=== PATIENT | female | born 1945 | race Caucasian/White ===

== ENCOUNTER → 2017-03-30 | Day surgery (SDC) | payer MEDICARE, BC ==
[~2017-03-30] MED LIST: Propofol 200 MG/20 ML SDV IV ONE; Sodium Chloride 0.9% 500 ML IV SCH
[2017-03-30 08:56] VITALS: BP 125/64
--- NOTE | 2017-04-02 07:12 | OR ---
DATE OF OPERATION: 03/30/2017 PREOPERATIVE DIAGNOSIS: 1. IRON-DEFICIENCY ANEMIA. 2. WEIGHT LOSS. POSTOPERATIVE DIAGNOSIS: 1. IRON-DEFICIENCY ANEMIA. 2. WEIGHT LOSS. SURGEON: Robe Oleary MD PROCEDURE: 1. EGD WITH HESHAM. 2. FULL-LENGTH COLONOSCOPY WITH POLYP REMOVAL X1. 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 COMPLICATIONS: None. SPECIMEN: 1. Antral HESHAM. 2. Rectal polyp likely hyperplastic. FINDINGS: 1. Full-length EGD. 2. Small hiatal hernia with nonobstructing Schatzki ring. 3. Full-length colonoscopy. 4. Hyperplastic polyp, rectal vault. RECOMMENDATIONS: Ongoing medical followup. INDICATIONS: The patient has been having some ongoing issues with weight loss and failure at attempts to gain weight. She has a history of iron-deficiency anemia. She is anticoagulated. She has refused endoscopies for almost a year and at this point, she does agree to pursue this further. DESCRIPTION OF PROCEDURE: The patient was prepped and draped, placed in a left lateral decubitus position. A lubricated Olympus gastroscope was inserted over a bit and advanced to cricopharyngeus area and easily intubated in the esophagus. Esophageal lining was benign in its entire course. The Z-line was crisp and sharp around 36 cm. There is a small hiatal hernia present, associated with a nonobstructing Schatzki ring. The scope was advanced into the stomach through the pylorus into the second portion of the duodenum. This and the duodenal bulb were benign. The scope was brought back into the stomach and retroflexed. The upper fundus and cardia were unremarkable. Throughout the entire length of the stomach, I could find no peptic ulcer disease, polyps, mass, ulceration, bleeding sites etc. A CLOtest was obtained. Air was suctioned and scope was removed without complication. A lubricated Olympus colonoscope was then inserted and advanced to the cecum. This was slightly difficult as the patient is very thin and not a lot of give in her colon, but we were able to get safely to the cecal pouch and visualize the ileocecal valve. The bowel prep was excellent. Upon withdrawal throughout the entire length of the colon, I could find no worrisome of polyps, mass, ulceration, bleeding sites. No vascular abnormalities or signs of colitis. No significant diverticula in the rectal vault. On retroflexion, the patient had a small hyperplastic appearing polyp, flat in the mid rectal vault region. We did remove it with the forceps with 2 cold biopsies. Air was suctioned. Scope was removed without complication. RAFAELA/NICHOLAS /[id number]
== END ==
LOC: CC.SDS 06:50
PROVIDERS: ATTEND Family Medicine
DX: K62.1 Rectal polyp (principal); K44.9 Diaphragmatic hernia without obstruction or gangrene; K22.2 Esophageal obstruction; J44.9 Chronic obstructive pulmonary disease, unspecified; I48.91 Unspecified atrial fibrillation; Z88.0 Allergy status to penicillin; Z88.1 Allergy status to other antibiotic agents; Z79.01 Long term (current) use of anticoagulants; Z79.82 Long term (current) use of aspirin; Z79.899 Other long term (current) drug therapy; F17.210 Nicotine dependence, cigarettes, uncomplicated
CPT/HCPCS: 00810; 36415; 43235; 45380; 85610; 87081; J2704; J7040; 88305

== ENCOUNTER 2017-09-04 14:38 | Observation (INO) | payer MEDICARE, BC ==
[2017-09-04] MEDS ORDERED: Sodium Chloride 0.9% 10 ML Syringe FLUSH PRN (14:55)
[2017-09-04] MEDS ORDERED: Albuterol 0.083% 2.5 MG/3 ML Neb Soln NEB PRN (14:58)
[2017-09-04] MEDS ORDERED: Albuterol 8 GM Inhaler INH PRN (14:58)
[2017-09-04] MEDS ORDERED: Carbidopa/Levodopa 25-100 MG Tab PO PRN (14:58)
[2017-09-04] MEDS ORDERED: cefTRIAXone 1 GM Vial IVPUSH SCH (15:00)
[2017-09-04 15:43] LABS: CHLORIDE,CL 99 mEq/L (98-106); SODIUM,NA 135 mEq/L (136-145)
[2017-09-04] MEDS ORDERED: Warfarin 2.5 MG Tab PO SCH ×2 (16:00)
[2017-09-04] MEDS ORDERED: Ketorolac 30 MG/ML SDV IVPUSH ONE (16:34)
[2017-09-04] MEDS ORDERED: Sodium Chloride 0.9% 250 ML IV SCH (16:45)
[2017-09-04] MEDS ORDERED: Sodium Chloride 0.9% 1,000 ML IV SCH (17:00)
[2017-09-04] MEDS ORDERED: Diltiazem 120 MG Cap.CD PO ONE (17:03)
[2017-09-04] MEDS ORDERED: Non-Formulary Medication 1 Each (Arformoterol [Brovana] 15 MCG) NEB SCH (20:00)
[2017-09-04] MEDS ORDERED: Non-Formulary Medication 1 Each (Fluticasone Propionate [Flovent] 1 SPRAY) NASBOTH SCH (20:00)
[2017-09-04] MEDS ORDERED: buPROPion 150 MG Tab.ER PO SCH (20:00)
[2017-09-04] MEDS ORDERED: metroNIDAZOLE 500 MG Tab PO SCH (20:00)
[2017-09-04] MEDS: Acetaminophen/HYDROcodone 325-5 MG Tab PO PRN (20:17)
[2017-09-04] MEDS: Cyclobenzaprine 10 MG Tab PO SCH (20:18)
[2017-09-04] MEDS: Budesonide 0.5 MG/2 ML Neb Susp NEB SCH (20:20)
[2017-09-04] MEDS: Nicotine 21 MG/24 Hr Patch TRDERM SCH (22:22)
[2017-09-05] MEDS: Acetaminophen/HYDROcodone 325-5 MG Tab PO PRN (04:02)
[2017-09-05] MEDS ORDERED: Pantoprazole 40 MG Tab.CR PO SCH (07:00)
[2017-09-05] MEDS: Nicotine 21 MG/24 Hr Patch TRDERM SCH (07:42)
[2017-09-05] MEDS: Cyclobenzaprine 10 MG Tab PO SCH ×2 (07:47→13:50)
[2017-09-05] MEDS: Budesonide 0.5 MG/2 ML Neb Susp NEB SCH (07:51)
[2017-09-05] MEDS ORDERED: DILTIAZEM HCL 240 MG PO SCH (08:00)
[2017-09-05] MEDS ORDERED: Ferrous Sulfate 324 MG Tab.EC PO SCH (08:00)
[2017-09-05] MEDS ORDERED: Diltiazem 180 MG Cap.CD PO SCH (08:00)
[2017-09-05] MEDS ORDERED: Aspirin 81 MG Tab.EC PO SCH (08:00)
[2017-09-05] MEDS ORDERED: methylPREDNISolone Sodium Succinate 125 MG/2 ML SDV IVPUSH SCH (08:00)
--- NOTE | 2017-09-05 11:13 | PCM.DCSUM1 ---
Discharge Summary - Hospital Course HPI Initial Comments: Khushboo is a 72 year old female who was admitted to observation status by Dr. Oleary on 09/04/2017 for pleurisy and atrial fibrillation with RVR. While in clinic , pulse rate was as high as 140. EKG revealed atrial fibrillation with RVR of 112. Troponin was negative. She had previously been taking 240 mg Diltiazem. She was given an additional 120 mg dose upon arrival to hospital. Throughout observation stay, pulse was better controlled and remained < 100. Telemetry revealed atrial fibrillation. She is on Coumadin. INR was supratherapeutic in hospital at 3.49. She will hold her Coumadin the next two days and then resume normal dosing. Cardizem dose will be increased to 360 mg daily. She has been struggling with neck pain and pleurisy. She was started on IV rocephin and steroids for questionable bronchiolitis as cause of pleurisy. CXR was negative for any infiltrates or other acute processes. C-spine images were obtained and reveal degenerative disc disease. CRP improved from 12.6 to 9.2. Patient will be referred to PT. She will be discharged home on 20 mg prednisone daily x 5 days as well as Flexeril TID PRN for pain. She is advised to stop taking prednisone if she experiences any upset stomach. We do not feel any further antibiotic therapy is warranted. She has been struggling with diarrhea recently. Cdiff was negative. WBC count remains normal. She is scheduled to follow up with Dr. Oleary in clinic next . She will also have her INR rechecked prior to clinic visit. - Discharge Data Discharge Date: 09/05/17 Discharge Disposition: Home, Self-Care 01 Condition: Good - Discharge Diagnosis/Problem(s) (1) Pleurisy SNOMED Code(s): 181215661 ICD Code: R09.1 - PLEURISY Status: Acute Current Visit: Yes (2) Atrial fibrillation with RVR SNOMED Code(s): 305342088671773 ICD Code: I48.91 - UNSPECIFIED ATRIAL FIBRILLATION Status: Acute Priority : High Current Visit: No (3) Degenerative cervical disc SNOMED Code(s): 36410635 ICD Code: M50.30 - OTHER CERVICAL DISC DEGENERATION, UNSP CERVICAL REGION Status: Acute Current Visit: Yes - Patient Summary/Data Consults: Consultations 09/04/17 14:55 PT Evaluation and Treatment [CONS] Routine - Patient Instructions Diet: Usual Diet as Tolerated Activity: As Tolerated, No Lifting Over 20 Pounds Notify Provider of: Increased Pain, Swelling and Redness - Discharge Plan Prescriptions/Med Rec: Cyclobenzaprine [Flexeril] 10 mg PO TID PRN #20 tablet PRN Reason: Pain predniSONE [Prednisone] 20 mg PO DAILY 5 Days #5 tablet Home Medications: Home Meds Albuterol Sulfate 2.5 mg NEB Q6H PRN 10/14/15 [History] Albuterol [Ventolin HFA] 1 - 2 puff INH Q4H PRN 10/14/15 [History] Arformoterol [Brovana] 15 mcg NEB BID 10/14/15 [History] Budesonide [Pulmicort] 0.25 mg NEB BID 10/14/15 [History] Carbidopa/Levodopa [Carbidopa-Levodopa 25-100 Tab] 1 - 2 tab PO BEDTIME PRN [History] Aspirin [Adult Low Dose Aspirin EC] 81 mg PO DAILY 04/10/16 [History] Vit A/C/E AC/Znox/Cupric Oxide [Eye Vitamin-Minerals Tablet] 2 tab PO BID [History] Pantoprazole [ProTONIX] 40 mg PO ACBREAKFAST #30 tab.cr 04/12/16 [Rx] Nebulizer Accessories [Gena Lc Plus Nebulizer] 1 kit NEB ASDIRECTED 09/04/17 [ History] Warfarin Sodium 5 mg PO MOTH 09/04/17 [History] Warfarin [Coumadin] 2.5 mg PO SUTUWEFRSA 09/04/17 [History] Cyclobenzaprine [Flexeril] 10 mg PO TID PRN #20 tablet 09/05/17 [Rx] Diltiazem HCl [Diltiazem 24Hr ER] 360 mg PO DAILY 09/05/17 [History] predniSONE [Prednisone] 20 mg PO DAILY 5 Days #5 tablet 09/05/17 [Rx] Patient Handouts: Musculoskeletal Pain, Atrial Fibrillation, [id number] Referrals: Robe Oleary MD [Primary Care Provider] - - General Info Date of Service: 09/05/17 Admission Dx/Problem (Free Text: Atrial Fibrillation with RVR Neck pain Functional Status: Reports: Tolerating Diet, Ambulating, Urinating. Denies: Pain Controlled, New Symptoms - Review of Systems General: Reports: No Symptoms. Denies: Fever, Weakness, Fatigue, Chills HEENT: Reports: No Symptoms Pulmonary: Reports: Pleuritic Chest Pain, Cough, Sputum. Denies: Shortness of Breath, Hemoptysis, Wheezing Cardiovascular: Reports: Dyspnea on Exertion. Denies: Chest Pain, Palpitations , Edema, Lightheadedness Gastrointestinal: Reports: No Symptoms Genitourinary: Reports: No Symptoms Musculoskeletal: Reports: Neck Pain, Shoulder Pain Skin: Reports: No Symptoms Neurological: Reports: No Symptoms Psychiatric: Reports: No Symptoms - Patient Data Vitals - Most Recent: Last Vital Signs Temp 97.4 F 09/05/17 08:00 Pulse 80 09/05/17 08:00 Resp 16 09/05/17 08:00 BP 109/46 L 09/05/17 08:00 Pulse Ox 99 09/05/17 08:00 Weight - Most Recent: 78 lb Lab Results - Last 24 hrs: Laboratory Results - last 24 hr 09/04/17 09/04/17 09/04/17 Range/Units 15:20 15:20 15:20 WBC 9.5 (5.0-10.0) 10^3/uL RBC 3.58 L (4.00-5.50) 10^6/uL Hgb 11.3 L (12.0-16.0) g/dL Hct 34.3 L (37.0-47.0) % MCV 95.8 H (82.0-94.0) fL MCH 31.6 (27.0-32.0) pg MCHC 32.9 L (33.0-38.0) g/dL RDW Coeff of Naomi 12.9 (11.0-15.0) % Plt Count 268 (150-400) 10^3/uL Neut % (Auto) 82.7 (35-85) % Lymph % (Auto) 8.6 L (10-55) % Andrews % (Auto) 7.0 (0-16) % Eos % (Auto) 1.5 (0-5) % Baso % (Auto) 0.2 (0-3) % Neut # (Auto) 7.84 H (1.80-7.00) 10^3/uL Lymph # (Auto) 0.81 L (1.00-4.80) 10^3/uL Andrews # (Auto) 0.66 (0.00-0.80) 10^3/uL Eos # (Auto) 0.14 (0.00-0.45) 10^3/uL Baso # (Auto) 0.02 10^3/uL PT 33.0 H (9.7-12.3) SEC INR 3.48 H (0.92-1.18) Sodium 135 L (136-145) mEq/L Potassium 3.6 (3.5-5.0) mEq/L Chloride 99 (98-106) mEq/L Carbon Dioxide 27 (21-32) mmol/L BUN 16 (7-18) mg/dL Creatinine 0.8 (0.6-1.0) mg/dL Est Cr Clr Drug Dosing TNP Estimated GFR (MDRD) > 60 (>=60) mL/min Glucose 165 H D (75-99) mg/dL Calcium 9.1 (8.4-10.1) mg/dL Total Bilirubin 0.2 (0.0-1.0) mg/dL AST 18 (15-37) U/L ALT 24 (12-78) U/L Alkaline Phosphatase 117 H (46-116) U/L Creatine Kinase 35 (21-215) U/L Troponin I < 0.017 (0.00-0.06) ng/mL C-Reactive Protein 12.6 H (0.2-0.8) mg/dL Total Protein 7.3 (6.4-8.2) g/dL Albumin 2.8 L (3.4-5.0) g/dL Urine Color (YELLOW) Urine Appearance (CLEAR) Urine pH (4.5-8.0) Ur Specific Monument (1.003-1.020) Urine Protein (NEGATIVE) mg/dL Urine Glucose (UA) (NEGATIVE) mg/dL Urine Ketones (NEGATIVE) mg/dL Urine Occult Blood (NEGATIVE) Urine Nitrite (NEGATIVE) Urine Bilirubin (NEGATIVE) Urine Urobilinogen (0.2-1.0) EU/dL Ur Leukocyte Esterase (NEGATIVE) Urine RBC (0-5) /HPF Urine WBC (0-5) /HPF Ur Squamous Epith Cells (NOT SEEN) /HPF 09/04/17 09/05/17 Range/Units 19:30 07:00 WBC (5.0-10.0) 10^3/uL RBC (4.00-5.50) 10^6/uL Hgb (12.0-16.0) g/dL Hct (37.0-47.0) % MCV (82.0-94.0) fL MCH (27.0-32.0) pg MCHC (33.0-38.0) g/dL RDW Coeff of Naomi (11.0-15.0) % Plt Count (150-400) 10^3/uL Neut % (Auto) (35-85) % Lymph % (Auto) (10-55) % Andrews % (Auto) (0-16) % Eos % (Auto) (0-5) % Baso % (Auto) (0-3) % Neut # (Auto) (1.80-7.00) 10^3/uL Lymph # (Auto) (1.00-4.80) 10^3/uL Andrews # (Auto) (0.00-0.80) 10^3/uL Eos # (Auto) (0.00-0.45) 10^3/uL Baso # (Auto) 10^3/uL PT 33.1 H (9.7-12.3) SEC INR 3.49 H (0.92-1.18) Sodium (136-145) mEq/L Potassium (3.5-5.0) mEq/L Chloride (98-106) mEq/L Carbon Dioxide (21-32) mmol/L BUN (7-18) mg/dL Creatinine (0.6-1.0) mg/dL Est Cr Clr Drug Dosing Estimated GFR (MDRD) (>=60) mL/min Glucose (75-99) mg/dL Calcium (8.4-10.1) mg/dL Total Bilirubin (0.0-1.0) mg/dL AST (15-37) U/L ALT (12-78) U/L Alkaline Phosphatase (46-116) U/L Creatine Kinase (21-215) U/L Troponin I (0.00-0.06) ng/mL C-Reactive Protein (0.2-0.8) mg/dL Total Protein (6.4-8.2) g/dL Albumin (3.4-5.0) g/dL Urine Color Yellow (YELLOW) Urine Appearance Clear (CLEAR) Urine pH 6.5 (4.5-8.0) Ur Specific Monument 1.020 (1.003-1.020) Urine Protein Negative (NEGATIVE) mg/dL Urine Glucose (UA) Negative (NEGATIVE) mg/dL Urine Ketones Negative (NEGATIVE) mg/dL Urine Occult Blood Negative (NEGATIVE) Urine Nitrite Negative (NEGATIVE) Urine Bilirubin Negative (NEGATIVE) Urine Urobilinogen 0.2 (0.2-1.0) EU/dL Ur Leukocyte Esterase Negative (NEGATIVE) Urine RBC Not seen (0-5) /HPF Urine WBC 0-5 (0-5) /HPF Ur Squamous Epith Cells Occasional H (NOT SEEN) /HPF DARYL Results - Last 24 hrs: Microbiology 09/04/17 06:30 C. difficile DNA Amplification - Final Stool / Feces NEGATIVE CDIFF BY DNA Med Orders - Current: Current Medications Hydrocodone Bitart/Acetaminophen ([place] 325-5 Mg) 1 tab PO Q6H PRN PRN Reason: Pain Last Admin: 09/05/17 04:02 Dose: 1 tab Albuterol (Ventolin Hfa) 0 gm INH Q2H PRN PRN Reason: Shortness of Breath Albuterol (Proventil Neb Soln) 2.5 mg NEB Q6H PRN PRN Reason: Shortness of Breath Aspirin (Halfprin) 81 mg PO DAILY [facility] Last Admin: 09/05/17 07:48 Dose: 81 mg Budesonide (Pulmicort) 0.25 mg NEB BID [facility] Last Admin: 09/05/17 07:51 Dose: 0.25 mg Carbidopa/Levodopa (Sinemet 25-100 Mg) 1 - 2 tab PO BEDTIME PRN PRN Reason: Spasms Ceftriaxone Sodium (Rocephin) 1 gm IVPUSH DAILY@1600 [facility] Last Admin: 09/04/17 17:23 Dose: 1 gm Cyclobenzaprine HCl (Flexeril) 10 mg PO TID [facility] Last Admin: 09/05/17 07:47 Dose: 10 mg Diltiazem HCl (Cardizem Cd) 360 mg PO DAILY [facility] Last Admin: 09/05/17 07:48 Dose: 360 mg Sodium Chloride (Normal Saline) 1,000 mls @ 50 mls/hr IV ASDIRECTED [facility] Last Admin: 09/04/17 17:36 Dose: 50 mls/hr Methylprednisolone Sodium Succinate (Solu-Medrol) 125 mg IVPUSH Q24H [facility] Last Admin: 09/05/17 07:47 Dose: 125 mg Nicotine (Habitrol) 21 mg TRDERM DAILY [facility] Last Admin: 09/05/17 07:42 Dose: 21 mg Non-Formulary Medication (Arformoterol [Brovana]) 15 mcg NEB BID [facility] Pantoprazole Sodium (Protonix) 40 mg PO ACBREAKFAST [facility] Last Admin: 09/05/17 06:43 Dose: 40 mg Sodium Chloride (Saline Flush) 10 ml FLUSH ASDIRECTED PRN PRN Reason: Keep Vein Open Warfarin Sodium (Coumadin) 2.5 mg PO SUTUWEFRSA [facility] Last Admin: 09/04/17 17:05 Dose: Not Given Warfarin Sodium (Coumadin) 5 mg PO MOTH [facility] Discontinued Medications Bupropion HCl (Wellbutrin Xl) 150 mg PO BID [facility] Diltiazem HCl (Cardizem Cd) 120 mg PO ONETIME ONE Stop: 09/04/17 17:04 Last Admin: 09/04/17 17:22 Dose: 120 mg Ferrous Sulfate (Ferrous Sulfate) 324 mg PO DAILY [facility] Sodium Chloride (Normal Saline) 250 mls @ 50 mls/hr IV ASDIRECTED [facility] Ketorolac Tromethamine (Toradol) 30 mg IVPUSH ONETIME ONE Stop: 09/04/17 16:35 Last Admin: 09/04/17 17:22 Dose: 30 mg Metronidazole (Flagyl) 500 mg PO TID [facility] Non-Formulary Medication (Diltiazem Hcl) 240 mg PO DAILY [facility] Non-Formulary Medication (Fluticasone Propionate [Flovent]) 1 spray NASBOTH BID [facility] Warfarin Sodium (Coumadin) 2.5 mg PO MOTUWETHFR [facility] Warfarin Sodium (Coumadin) 5 mg PO SUSA [facility] - Exam Quality Assessment: Reports: DVT Prophylaxis. Denies: Supplemental Oxygen General: Reports: Alert, Oriented, No Acute Distress Neck: Reports: Supple, Trachea Midline Lungs: Reports: Clear to Auscultation, Normal Respiratory Effort, Decreased Breath Sounds Cardiovascular: Reports: Regular Rate, Irregular Rhythm, Murmurs Back Exam: Reports: Normal Inspection, Full Range of Motion Extremities: Normal Inspection, Normal Range of Motion, Non-Tender, No Pedal Edema, Normal Capillary Refill Skin: Reports: Warm, Dry, Intact Neurological: Reports: No New Focal Deficit Psy/Mental Status: Reports: Alert, Normal Affect, Normal Mood
[2017-09-05 11:25] LABS: CHLORIDE,CL 99 mEq/L (98-106); SODIUM,NA 132 mEq/L (136-145)
[2017-09-05 12:17] VITALS: BP 120/56
[2017-09-06] MEDS ORDERED: Warfarin 5 MG Tab PO SCH (16:00)
[2017-09-08] MEDS ORDERED: Warfarin 5 MG Tab PO SCH (16:00)
== END 2017-09-05 13:47 | disposition home or self-care (01) ==
LOC: UNDOADMOB 14:38 → CC.MS 14:38
PROVIDERS: ADMIT Family Medicine; ATTEND Family Medicine
DX: R09.1 Pleurisy (principal); I48.91 Unspecified atrial fibrillation; M50.30 Other cervical disc degeneration, unspecified cervical region; J30.9 Allergic rhinitis, unspecified; M19.90 Unspecified osteoarthritis, unspecified site; J44.9 Chronic obstructive pulmonary disease, unspecified; E78.5 Hyperlipidemia, unspecified; D50.9 Iron deficiency anemia, unspecified; G25.81 Restless legs syndrome; J30.2 Other seasonal allergic rhinitis; F17.210 Nicotine dependence, cigarettes, uncomplicated; Z79.82 Long term (current) use of aspirin; Z79.899 Other long term (current) drug therapy; Z88.8 Allergy status to other drugs, medicaments and biological substances; Z88.0 Allergy status to penicillin
CPT/HCPCS: 36415; 71046; 72040; 80053; 81001; 82550; 84484; 85025; 85610; 86140; 87493; 93005; 96374; 96375; A9270-GY; G0378; J0696; J1885; J2930; J7030

== ENCOUNTER 2018-03-26 21:18 | Emergency (ER) | payer MEDICARE, BC, OTHER ==
[2018-03-26 22:02] VITALS: BP 124/63
[2018-03-26 22:59] LABS: CHLORIDE,CL 101 mEq/L (98-106); SODIUM,NA 138 mEq/L (136-145)
--- NOTE | 2018-03-26 23:44 | EDM.PDOC ---
ED HPI GENERAL MEDICAL PROBLEM - General Chief Complaint: Abdominal Pain Stated Complaint: abdominal Time Seen by Provider: 03/26/18 22:05 Source of Information: Reports: Patient History Limitations: Reports: No Limitations - History of Present Illness INITIAL COMMENTS - FREE TEXT/NARRATIVE: Khushboo is a 72 yo female who presents to the ED with complaints of a right inguinal mass. She has been doctoring for this over the last 10 months. She admits it will swell up in the right groin area and stay swollen up and cause her to have extreme discomfort. She admits she has had CT scans done in the past and no known cause is noted. She recently seen Dr. Aguilar for this and is scheduled to undergo exploratory laparotomy on March 28. She states Dr. Aguilar was unable to feel the mass. She admits she has pushed off surgery a few times as her had recently underwent a lower extremity amputation and she needed to care for him. She states it will come and go randomly and at times swell up to the size of an egg. She states she can usually apply heat to the area and that will usually take the discomfort away. Tonight she was unable to get any relief. She admits it seems to be gradually getting worse lately in intensity. She admits tonight she took one of her anxiety pills and that seemed to make it feel a lot better. At onset it was a 10 out of 10 on pain scale and now currently a 4 out of 10. Right Lower Abdomen Pain Score (Numeric/FACES): 4 - Related Data Allergies Allergy/AdvReac Type Severity Reaction Status Date / Time ciprofloxacin [From Cipro] Allergy Hives Verified 03/26/18 21:19 ciprofloxacin HCl Allergy Hives Verified 03/26/18 21:19 [From Cipro] Penicillins Allergy Rash Verified 03/26/18 21:19 Home Meds: Home Meds Albuterol Sulfate 2.5 mg NEB Q6H PRN 10/14/15 [History] Albuterol [Ventolin HFA] 1 - 2 puff INH Q4H PRN 10/14/15 [History] Arformoterol [Brovana] 15 mcg NEB BID 10/14/15 [History] Budesonide [Pulmicort] 0.25 mg NEB BID 10/14/15 [History] Carbidopa/Levodopa [Carbidopa-Levodopa 25-100 Tab] 1 - 2 tab PO BEDTIME PRN [History] Vit A/C/E AC/Znox/Cupric Oxide [Eye Vitamin-Minerals Tablet] 2 tab PO BID [History] Pantoprazole [ProTONIX] 40 mg PO ACBREAKFAST #30 tab.cr 04/12/16 [Rx] Nebulizer Accessories [Gena Lc Plus Nebulizer] 1 kit NEB ASDIRECTED 09/04/17 [ History] Warfarin Sodium 5 mg PO MOTH 09/04/17 [History] Warfarin [Coumadin] 2.5 mg PO SUTUWEFRSA 09/04/17 [History] Diltiazem HCl [Diltiazem 24Hr ER] 360 mg PO DAILY 09/05/17 [History] Past Medical History HEENT History: Reports: Cataract, Impaired Vision Cardiovascular History: Reports: Afib Respiratory History: Reports: COPD, Pneumonia, Recurrent Other Respiratory History: emphysema HOME HEALTH CARE COORDINATOR History: Reports: , Other (See Below) Other HOME HEALTH CARE COORDINATOR History: has enlarged area right groin; unsure if it is a hernia or enlarged lymph node or something else. Patient is scheduled for exploratory laparoscopy on to find out what is causing her pain in that area Musculoskeletal History: Reports: Osteoarthritis - Past Surgical History HEENT Surgical History: Reports: Adenoidectomy, Cataract Surgery, Tonsillectomy Respiratory Surgical History: Reports: None Social & Family History - Family History Family Medical History: Noncontributory Cardiac: Reports: [place] - Tobacco Use Smoking Status *Q: Current Every Day Smoker Years of Tobacco use: 69 Packs/Tins Daily: 0.5 - Caffeine Use Caffeine Use: Reports: Coffee, Soda ED ROS GENERAL - Review of Systems Review Of Systems: See Below Constitutional: Reports: No Symptoms HEENT: Reports: No Symptoms Respiratory: Reports: Shortness of Breath (COPD), Cough Cardiovascular: Reports: No Symptoms GI/Abdominal: Reports: Abdominal Pain (right inguinal area). Denies: Bloody Stool, Diarrhea (normal bowel movements, on stool softener), Nausea, Vomiting : Reports: No Symptoms Musculoskeletal: Reports: No Symptoms Skin: Reports: No Symptoms Neurological: Reports: No Symptoms ED EXAM, GI/ABD - Physical Exam Exam: See Below Exam Limited By: No Limitations General Appearance: Alert, No Apparent Distress Head: Atraumatic, Normocephalic Neck: Normal Inspection, Supple Respiratory/Chest: Decreased Breath Sounds. No: Crackles, Rales, Rhonchi, Wheezing Cardiovascular: No Murmur, Irregularly Irregular (known history of atrial fibrillation), Other (femoral pulses palpated bilaterally, femoral bruit on ausculation bilaterally) GI/Abdominal Exam: Normal Bowel Sounds, Soft, No Distention, No Mass (I do not feel any significant masses. Maybe slight lymphadenopathy to right groin region. ), Tender (right inguinal area. ). No: No Organomegaly, Rigid, Hernia Extremities: No: Pedal Edema Neurological: Alert, Oriented, Normal Cognition Psychiatric: Normal Affect, Normal Mood Skin Exam: Warm, Dry, Intact, Normal Color, No Rash Course - Vital Signs Last Recorded V/S: Last Vital Signs Temp 97.1 F 03/26/18 21:30 Pulse 89 03/26/18 21:30 Resp 16 03/26/18 21:30 BP 124/63 03/26/18 21:30 Pulse Ox 97 03/26/18 21:30 - Orders/Labs/Meds Orders: Active Orders 24 hr Category Date Time Status UA RFX DARYL AND CULT IF INDIC [URIN] Stat Lab 03/26/18 22:39 Ordered Labs: Laboratory Tests 03/26/18 03/26/18 Range/Units 22:44 22:44 WBC 8.4 (5.0-10.0) 10^3/uL RBC 3.91 L (4.00-5.50) 10^6/uL Hgb 12.7 (12.0-16.0) g/dL Hct 37.1 (37.0-47.0) % MCV 94.9 H (82.0-94.0) fL MCH 32.5 H (27.0-32.0) pg MCHC 34.2 (33.0-38.0) g/dL RDW Coeff of Naomi 13.5 (11.0-15.0) % Plt Count 194 (150-400) 10^3/uL Neut % (Auto) 78.7 (35-85) % Lymph % (Auto) 12.9 (10-55) % Cloud % (Auto) 6.3 (0-16) % Eos % (Auto) 1.5 (0-5) % Baso % (Auto) 0.6 (0-3) % Neut # (Auto) 6.63 (1.80-7.00) 10^3/uL Lymph # (Auto) 1.09 (1.00-4.80) 10^3/uL Cloud # (Auto) 0.53 (0.00-0.80) 10^3/uL Eos # (Auto) 0.13 (0.00-0.45) 10^3/uL Baso # (Auto) 0.05 10^3/uL Sodium 138 (136-145) mEq/L Potassium 3.7 (3.5-5.0) mEq/L Chloride 101 (98-106) mEq/L Carbon Dioxide 29 (21-32) mmol/L BUN 17 (7-18) mg/dL Creatinine 0.6 (0.6-1.0) mg/dL Est Cr Clr Drug Dosing 47.84 mL/min Estimated GFR (MDRD) > 60 (>=60) mL/min Glucose 114 H (75-99) mg/dL Calcium 9.4 (8.4-10.1) mg/dL Total Bilirubin 0.4 (0.0-1.0) mg/dL AST 22 (15-37) U/L ALT 11 L (12-78) U/L Alkaline Phosphatase 122 H (46-116) U/L C-Reactive Protein 0.5 (0.2-0.8) mg/dL Total Protein 7.2 (6.4-8.2) g/dL Albumin 3.1 L (3.4-5.0) g/dL Departure - Departure Time of Disposition: 23:48 Disposition: Home, Self-Care 01 Clinical Impression: Right groin pain - Discharge Information Additional Instructions: 1) Rest tonight 2) Lab work was unremarkable 3) May take anxiety medication as discussed 4) If pain returns or any further concerns tonight, recommend returning to ED - Problem List & Annotations (1) Right groin pain SNOMED Code(s): 378652738 Code(s): R10.31 - RIGHT LOWER QUADRANT PAIN Status: Acute - My Orders Last 24 Hours: My Active Orders 03/26/18 22:39 UA RFX DARYL AND CULT IF INDIC [URIN] Stat - Assessment/Plan Last 24 Hours: My Active Orders 12/04/18 22:39 UA RFX DARYL AND CULT IF INDIC [URIN] Stat Plan: Khushboo was feeling a lot better during her time in the ED tonight. Will discharge home at this time. Patient verbalized understanding and was in agreement. No definitive cause found in regards to discomfort. Will need to proceed with surgery for further evaluation.
== END 2018-03-26 23:55 | disposition home or self-care (01) ==
LOC: CC.ED 21:18
DX: R10.31 Right lower quadrant pain (principal); I48.91 Unspecified atrial fibrillation; F17.210 Nicotine dependence, cigarettes, uncomplicated; Z79.899 Other long term (current) drug therapy; Z88.1 Allergy status to other antibiotic agents; Z88.0 Allergy status to penicillin
CPT/HCPCS: 36415; 80053; 85025; 86140; 99283

== ENCOUNTER → 2018-03-28 | Day surgery (SDC) | payer MEDICARE, BC, OTHER ==
[~2018-03-28] MED LIST changes: +Lactated Ringers 1,000 ML IV SCH; +Midazolam 1 MG/ML 2 ML SDV IV ONE; -Sodium Chloride 0.9% 500 ML IV SCH; +fentaNYL 100 MCG/2 ML SDV IV ONE
[2018-03-28 13:26] VITALS: BP 122/55
--- NOTE | 2018-03-28 14:23 | OR ---
DATE OF OPERATION: 03/28/2018 PREOPERATIVE DIAGNOSIS: RIGHT INGUINAL HERNIA. POSTOPERATIVE DIAGNOSIS: RIGHT INGUINAL HERNIA. SURGEON: Ollie Aguilar MD PROCEDURE: LAPAROSCOPIC REPAIR OF RIGHT INGUINAL HERNIA. ANESTHESIA: General. ESTIMATED BLOOD LOSS: None. SPECIMEN: None. FINDINGS: A small right inguinal hernia and multiple intraabdominal adhesions. INDICATION FOR PROCEDURE: This 72-year-old female has actually quite poor health, but complains bitterly of right lower quadrant pain. By physical examination, I could not actually feel a hernia, and by her history, however, she states that she has a walnut size bulge that intermittently comes and goes that she is able to push back inside. I had recommended a diagnostic laparoscopy to confirm this. DESCRIPTION OF PROCEDURE: After adequate preparation, an alternate access port was used in the left upper quadrant to put a Veress needle intraperitoneally and insufflate the abdomen. This was then exchanged for a trocar, and a 5 mm laparoscope was inserted. A second trocar was placed in the right upper quadrant under direct vision. Examination showed a lot of intraabdominal adhesions. The patient has had a section and has the midline mostly socked in with adhesions. The camera was placed in the right upper quadrant site, and looking down into the right groin, did demonstrate a very small inguinal hernia. By palpation exteriorly, I was able to leon the peritoneum on this and actually tack it up to the abdominal wall medially by placing several other tacking stitches around the small opening of the hernia. I feel this will adequately block the inguinal canal and repair her hernia without suturing or mesh placement. The abdomen was then desufflated and the skin closed with Vicryl. FRANCIS/NICHOLAS /[id number]
== END ==
LOC: CC.SDS 08:30
PROVIDERS: ATTEND Surgery
DX: K40.90 Unilateral inguinal hernia, without obstruction or gangrene, not specified as recurrent (principal); J30.9 Allergic rhinitis, unspecified; M19.90 Unspecified osteoarthritis, unspecified site; I48.91 Unspecified atrial fibrillation; J44.9 Chronic obstructive pulmonary disease, unspecified; E78.5 Hyperlipidemia, unspecified; D50.9 Iron deficiency anemia, unspecified; G25.81 Restless legs syndrome; F17.210 Nicotine dependence, cigarettes, uncomplicated; Z88.0 Allergy status to penicillin; Z79.01 Long term (current) use of anticoagulants; Z79.899 Other long term (current) drug therapy
CPT/HCPCS: 36415; 49650; 85610; J2250; J2704; J3010; J7120; 00840

== ENCOUNTER 2019-08-07 14:20 | Inpatient (IN) | payer MEDICARE, BC, OTHER, SELFPAY ==
--- NOTE | 2019-08-07 14:48 | EDM.PDOC ---
ED HPI GENERAL MEDICAL PROBLEM - General Chief Complaint: General Stated Complaint: L shoulder pain, SOB, MCPHERSON, fever Time Seen by Provider: 08/07/19 14:20 Source of Information: Reports: Patient History Limitations: Reports: No Limitations - History of Present Illness INITIAL COMMENTS - FREE TEXT/NARRATIVE: Patient presents to ER with complaints of increased shortness of breath, fever and fatigue. States started to feel more tired 2 days ago, has been taking more naps. She took a nebulizer treatment earlier and it didn't feel like it worked as well as normal. Took temp at home 100.5. Has been coughing, tight, unable to expectorate much. Notes mild sinus congestion and sore throat. Has pain in her left shoulder that radiates up to her neck, can have pain up to an 8 when it occurs. No nausea or vomiting. No abdominal pain or diarrhea. Son recently had upper respiratory symptoms, was tested for COVID, was negative. patient has not travelled at all, son has been [place]. Onset: Gradual Duration: Day(s): Location: Reports: Chest Quality: Reports: Ache Severity: Moderate Improves with: Reports: Medication Associated Symptoms: Reports: Cough, Fever/Chills, Headaches, Shortness of Breath. 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: Acetaminophen, Breathing Treatments Shoulder Pain Score (Numeric/FACES): 8 - Related Data Allergies Allergy/AdvReac Type Severity Reaction Status Date / Time ciprofloxacin [From Cipro] Allergy Hives Verified 08/07/19 14:48 ciprofloxacin HCl Allergy Hives Verified 08/07/19 14:48 [From Cipro] Penicillins Allergy Rash Verified 08/07/19 14:48 Home Meds: Home Meds Albuterol Sulfate 2.5 mg NEB Q6H PRN 10/14/15 [History] Arformoterol [Brovana] 15 mcg NEB BID 10/14/15 [History] Budesonide [Pulmicort] 0.25 mg NEB BID PRN 10/14/15 [History] Carbidopa/Levodopa [Carbidopa-Levodopa 25-100 Tab] 1 - 2 tab PO BEDTIME PRN [History] Vit A/C/E AC/Znox/Cupric Oxide [Eye Vitamin-Minerals Tablet] 2 tab PO BID [History] Pantoprazole [ProTONIX] 40 mg PO ACBREAKFAST #30 tab.cr 04/12/16 [Rx] dilTIAZem HCl [Diltiazem 24Hr ER ([place])] 360 mg PO DAILY 09/05/17 [History] ALPRAZolam [Alprazolam] 0.25 mg PO Q8H PRN 03/28/18 [History] Fluticasone Propionate [Flovent] 1 spray NASBOTH BID 03/28/18 [History] Acetaminophen [Tylenol Extra Strength] 2 each PO ASDIRECTED PRN 01/02/19 [ History] Iron,Carbonyl/Vit C/Vit B12/Fa [Iron 100 Plus Tablet] 1 each PO DAILY 01/02/19 [ History] Vit A/C/E AC/Znox/Cupric Oxide [Eye Vitamin-Minerals Tablet] 2 each PO BID 01/02 [History] Warfarin Sodium [Jantoven] 1 each PO DAILY 01/02/19 [History] Past Medical History HEENT History: Reports: Cataract, Impaired Vision Cardiovascular History: Reports: Afib, High Cholesterol Respiratory History: Reports: COPD, Pneumonia, Recurrent Other Respiratory History: emphysema PATIENT'S LIBRARIAN History: Reports: , Other (See Below) Other PATIENT'S LIBRARIAN History: has enlarged area right groin; unsure if it is a hernia or enlarged lymph node or something else. Patient is scheduled for exploratory laparoscopy on to find out what is causing her pain in that area Musculoskeletal History: Reports: Osteoarthritis - Past Surgical History HEENT Surgical History: Reports: Adenoidectomy, Cataract Surgery, Tonsillectomy Respiratory Surgical History: Reports: None Social & Family History - Family History Family Medical History: Noncontributory Cardiac: Reports: ME - Tobacco Use Smoking Status *Q: Current Every Day Smoker - Caffeine Use Caffeine Use: Reports: Coffee, Soda ED ROS GENERAL - Review of Systems Review Of Systems: See Below Constitutional: Reports: Fever, Chills, Malaise, Weakness, Fatigue HEENT: Reports: Rhinitis, Sinus Problem, Throat Pain. Denies: Ear Pain Respiratory: Reports: Shortness of Breath, Cough. Denies: Sputum Cardiovascular: Denies: Chest Pain, Edema, Lightheadedness Endocrine: Reports: Fatigue GI/Abdominal: Denies: Abdominal Pain, Constipation, Diarrhea, Nausea, Vomiting : Reports: No Symptoms Musculoskeletal: Reports: No Symptoms Skin: Reports: No Symptoms Neurological: Reports: Weakness ED EXAM, GENERAL - Physical Exam Exam: See Below Exam Limited By: No Limitations General Appearance: Alert, WD/WN, No Apparent Distress Ears: Normal External Exam, Normal TMs Nose: Normal Inspection, Normal Mucosa, No Blood Throat/Mouth: Normal Inspection, Normal Oropharynx Head: Normocephalic Neck: Normal Inspection, Supple, Non-Tender Respiratory/Chest: No Respiratory Distress, Decreased Breath Sounds Cardiovascular: Irregularly Irregular GI/Abdominal: Normal Bowel Sounds, Soft, Non-Tender Extremities: Normal Inspection, No Pedal Edema Neurological: Alert, Oriented Skin Exam: Warm, Dry Course - Vital Signs Last Recorded V/S: Last Vital Signs Temp 99.5 F 08/07/19 15:54 Pulse 119 H 08/07/19 15:54 Resp 18 08/07/19 15:54 BP 125/62 08/07/19 14:25 Pulse Ox 93 L 08/07/19 15:54 - Orders/Labs/Meds Orders: Active Orders 24 hr Category Date Time Status Chest 1V Frontal [CR] Stat Exams 08/07/19 14:05 Taken CORONAVIRUS COVID-19 PCR PHL Stat Lab 08/07/19 14:30 Received CULTURE BLOOD [BC] Stat Lab 08/07/19 15:10 Received CULTURE BLOOD [BC] Stat Lab 08/07/19 15:10 Received Isolation [COMM] Routine Oth 08/07/19 14:06 Active Medication Orders Acetaminophen (Tylenol) 650 mg PO Q4H PRN PRN Reason: Pain (Mild 1-3)/fever Albuterol (Proventil Neb Soln) 2.5 mg NEB Q4H PRN PRN Reason: Shortness Of Breath/wheezing Albuterol/Ipratropium (Duoneb 3.0-0.5 Mg/3 Ml) 3 ml NEB QIDRT [facility] Last Admin: 08/07/19 16:26 Dose: 3 ml Alprazolam (Xanax) 0.25 mg PO Q8H PRN PRN Reason: Anxiety Budesonide (Pulmicort) 0.25 mg NEB BID PRN PRN Reason: Shortness of Breath Carbidopa/Levodopa (Sinemet 25-100 Mg) 1 - 2 tab PO BEDTIME PRN PRN Reason: Spasms Ceftriaxone Sodium (Rocephin) 1 gm IVPUSH Q24H [facility] Last Admin: 08/07/19 16:25 Dose: 1 gm Diltiazem HCl (Cardizem Cd) 360 mg PO DAILY [facility] Fluticasone Propionate (Flonase) 0 gm BRIANNA BID [facility] Guaifenesin (Organ-I Nr) 200 mg PO TID [facility] Azithromycin 500 mg/ Sodium (Chloride) 250 mls @ 250 mls/hr IV Q24H [facility] Last Admin: 08/07/19 16:27 Dose: 250 mls/hr Multivitamins/Minerals (Prosight) 2 tab PO BID [facility] Non-Formulary Medication (Arformoterol [Brovana]) 15 mcg NEB BID [facility] Non-Formulary Medication (Iron,Carbonyl/Vit C/Vit B12/Fa [Iron 100 Plus Tablet] ) 1 each PO DAILY [facility] Ondansetron HCl (Zofran Odt) 4 mg PO Q4H PRN PRN Reason: nausea, able to take PO Ondansetron HCl (Zofran) 4 mg IV Q4H PRN PRN Reason: Nausea/Vomiting Pantoprazole Sodium (Protonix) 40 mg PO ACBREAKFAST [facility] Sodium Chloride (Saline Flush) 10 ml FLUSH ASDIRECTED PRN PRN Reason: Keep Vein Open Warfarin Sodium (Coumadin) 2.5 mg PO DAILY [facility] Labs: Laboratory Tests 08/07/19 08/07/19 08/07/19 Range/Units 14:30 14:30 14:30 WBC 13.1 H (5.0-10.0) 10^3/uL RBC 4.15 (4.00-5.50) 10^6/uL Hgb 12.4 (12.0-16.0) g/dL Hct 38.5 (37.0-47.0) % MCV 92.8 (82.0-94.0) fL MCH 29.9 (27.0-32.0) pg MCHC 32.2 L (33.0-38.0) g/dL RDW Coeff of Naomi 14.3 (11.0-15.0) % Plt Count 161 (150-400) 10^3/uL Neut % (Auto) 84.9 (35-85) % Lymph % (Auto) 7.2 L (10-55) % [place] % (Auto) 6.7 (0-16) % Eos % (Auto) 1.0 (0-5) % Baso % (Auto) 0.2 (0-3) % Neut # (Auto) 11.15 H (1.80-7.00) 10^3/uL Lymph # (Auto) 0.94 L (1.00-4.80) 10^3/uL [place] # (Auto) 0.88 H (0.00-0.80) 10^3/uL Eos # (Auto) 0.13 (0.00-0.45) 10^3/uL Baso # (Auto) 0.02 10^3/uL PT (9.7-12.3) SEC INR (0.92-1.18) D-Dimer, Quantitative 0.25 (0.00-0.50) Sodium 137 (136-145) mEq/L Potassium 4.4 (3.5-5.0) mEq/L Chloride 98 (98-106) mEq/L Carbon Dioxide 34 H (21-32) mmol/L BUN 21 H D (7-18) mg/dL Creatinine 0.7 (0.6-1.0) mg/dL Est Cr Clr Drug Dosing TNP Estimated GFR (MDRD) > 60 (>=60) mL/min Glucose 105 H (75-99) mg/dL Lactic Acid (0.4-2.0) mmol/L Calcium 9.4 (8.4-10.1) mg/dL Total Bilirubin 0.4 (0.0-1.0) mg/dL AST 21 (15-37) U/L ALT 25 (12-78) U/L Alkaline Phosphatase 133 H (46-116) U/L Lactate Dehydrogenase 165 (100-190) U/L Troponin I < 0.017 (0.00-0.06) ng/mL C-Reactive Protein 5.1 H (0.2-0.8) mg/dL NT-Pro-B Natriuret Pep 1338 H (0-1000) pg/mL Total Protein 7.4 (6.4-8.2) g/dL Albumin 3.2 L (3.4-5.0) g/dL 08/07/19 08/07/19 Range/Units 15:00 15:10 WBC (5.0-10.0) 10^3/uL RBC (4.00-5.50) 10^6/uL Hgb (12.0-16.0) g/dL Hct (37.0-47.0) % MCV (82.0-94.0) fL MCH (27.0-32.0) pg MCHC (33.0-38.0) g/dL RDW Coeff of Naomi (11.0-15.0) % Plt Count (150-400) 10^3/uL Neut % (Auto) (35-85) % Lymph % (Auto) (10-55) % [place] % (Auto) (0-16) % Eos % (Auto) (0-5) % Baso % (Auto) (0-3) % Neut # (Auto) (1.80-7.00) 10^3/uL Lymph # (Auto) (1.00-4.80) 10^3/uL [place] # (Auto) (0.00-0.80) 10^3/uL Eos # (Auto) (0.00-0.45) 10^3/uL Baso # (Auto) 10^3/uL PT 15.3 H (9.7-12.3) SEC INR 1.52 H (0.92-1.18) D-Dimer, Quantitative (0.00-0.50) Sodium (136-145) mEq/L Potassium (3.5-5.0) mEq/L Chloride (98-106) mEq/L Carbon Dioxide (21-32) mmol/L BUN (7-18) mg/dL Creatinine (0.6-1.0) mg/dL Est Cr Clr Drug Dosing Estimated GFR (MDRD) (>=60) mL/min Glucose (75-99) mg/dL Lactic Acid 1.1 (0.4-2.0) mmol/L Calcium (8.4-10.1) mg/dL Total Bilirubin (0.0-1.0) mg/dL AST (15-37) U/L ALT (12-78) U/L Alkaline Phosphatase (46-116) U/L Lactate Dehydrogenase (100-190) U/L Troponin I (0.00-0.06) ng/mL C-Reactive Protein (0.2-0.8) mg/dL NT-Pro-B Natriuret Pep (0-1000) pg/mL Total Protein (6.4-8.2) g/dL Albumin (3.4-5.0) g/dL Meds: Medications Generic Name Dose Route Start Last Admin Trade Name Freq PRN Reason Stop Dose Admin Acetaminophen 650 mg 08/07/19 15:54 Tylenol PO Q4H PRN Pain (Mild 1-3)/fever Albuterol 2.5 mg 08/07/19 15:54 Proventil Neb Soln NEB Q4H PRN Shortness Of Breath/wheezing Albuterol/Ipratropium 3 ml 08/07/19 16:00 08/07/19 16:26 Duoneb 3.0-0.5 Mg/3 Ml NEB 3 ml QIDRT [facility] Administration Alprazolam 0.25 mg 08/07/19 15:54 Xanax PO Q8H PRN Anxiety Budesonide 0.25 mg 08/07/19 15:54 Pulmicort NEB BID PRN Shortness of Breath Carbidopa/Levodopa 1 - 2 tab 08/07/19 15:54 Sinemet 25-100 Mg PO BEDTIME PRN Spasms Ceftriaxone Sodium 1 gm 08/07/19 16:00 08/07/19 16:25 Rocephin IVPUSH 1 gm Q24H [facility] Administration Diltiazem HCl 360 mg 08/08/19 08:00 Cardizem Cd PO DAILY [facility] Fluticasone Propionate 0 gm 08/07/19 20:00 Flonase BRIANNA BID [facility] Guaifenesin 200 mg 08/07/19 20:00 Organ-I Nr PO TID [facility] Azithromycin 500 mg/ Sodium 250 mls @ 250 mls/hr 08/07/19 17:00 08/07/19 16: 27 Chloride IV 250 mls/hr Q24H [facility] Administration Multivitamins/Minerals 2 tab 08/07/19 20:00 Prosight PO BID [facility] Non-Formulary Medication 15 mcg 08/07/19 20:00 Arformoterol [Brovana] NEB BID [facility] Non-Formulary Medication 1 each 08/08/19 08:00 Iron,Carbonyl/Vit C/Vit B12/Fa [Iron 100 Plus Tablet] PO DAILY [facility] Ondansetron HCl 4 mg 08/07/19 15:54 Zofran Odt PO Q4H PRN nausea, able to take PO Ondansetron HCl 4 mg 08/07/19 15:54 Zofran IV Q4H PRN Nausea/Vomiting Pantoprazole Sodium 40 mg 08/08/19 07:00 Protonix PO ACBREAKFAST [facility] Sodium Chloride 10 ml 08/07/19 15:54 Saline Flush FLUSH ASDIRECTED PRN Keep Vein Open Warfarin Sodium 2.5 mg 08/08/19 08:00 Coumadin PO DAILY [facility] - Re-Assessments/Exams Free Text/Narrative Re-Assessment/Exam: 08/07/19 Labs show mildly elevated WBC at 13. CRP 5.4. Chest xray is unremarkable. Temp down to 101.3. Blood cultures obtained. Dr. Oleary informed. Admit to inpatient. Departure - Departure Time of Disposition: 15:55 Disposition: Admitted As Inpatient 65 Condition: Fair Clinical Impression: Upper respiratory infection COPD (chronic obstructive pulmonary disease) Qualifiers: COPD type: COPD with acute exacerbation Qualified Code(s): J44.1 - Chronic obstructive pulmonary disease with (acute) exacerbation - Discharge Information *PRESCRIPTION DRUG MONITORING PROGRAM REVIEWED*: No *COPY OF PRESCRIPTION DRUG MONITORING REPORT IN PATIENT JULY: No Sepsis Event Note - Evaluation Sepsis Screening Result: No Definite Risk - Focused Exam Vital Signs: Vital Signs Temp Pulse Resp BP Pulse Ox 08/07/19 14:25 101.7 F H 112 H 28 H 125/62 95 Date Exam was Performed: 08/07/19 Time Exam was Performed: 20:07 - Problem List & Annotations (1) Upper respiratory infection SNOMED Code(s): 85515714 Code(s): J06.9 - ACUTE UPPER RESPIRATORY INFECTION, UNSPECIFIED Status: Acute Current Visit: Yes Qualifiers: URI type: unspecified URI Qualified Code(s): J06.9 - Acute upper respiratory infection, unspecified (2) COPD (chronic obstructive pulmonary disease) SNOMED Code(s): 15630672 Code(s): J44.9 - CHRONIC OBSTRUCTIVE PULMONARY DISEASE, UNSPECIFIED Status : Chronic Priority: High Current Visit: Yes Qualifiers: COPD type: COPD with acute exacerbation Qualified Code(s): J44.1 - Chronic obstructive pulmonary disease with (acute) exacerbation (3) Atrial fibrillation with RVR SNOMED Code(s): 232377228186236 Code(s): I48.91 - UNSPECIFIED ATRIAL FIBRILLATION Status: Chronic Priority: High Current Visit: Yes - Problem List Review Problem List Initiated/Reviewed/Updated: Yes - My Orders Last 24 Hours: My Active Orders 08/07/19 14:05 Chest 1V Frontal [CR] Stat 08/07/19 14:06 Isolation [COMM] Routine 08/07/19 14:30 CORONAVIRUS COVID-19 PCR PHL Stat 08/07/19 15:10 CULTURE BLOOD [BC] Stat CULTURE BLOOD [BC] Stat - Assessment/Plan Admission H&P: Please use this note as an admission H&P Last 24 Hours: My Active Orders 08/07/19 14:05 Chest 1V Frontal [CR] Stat 08/07/19 14:06 Isolation [COMM] Routine 08/07/19 14:30 CORONAVIRUS COVID-19 PCR PHL Stat 08/07/19 15:10 CULTURE BLOOD [BC] Stat CULTURE BLOOD [BC] Stat Assessment:: URI COPD Exacerbation Atrial Fib with RVR Plan: Admit to inpatient. Start IV Rocephin and Zithromax. Duonebs. Repeat labs in am. Await COVID, keep in isolation. Dr. Oleary aware of admission and agrees with plan.
[2019-08-07 15:00] LABS: CHLORIDE,CL 98 mEq/L (98-106); SODIUM,NA 137 mEq/L (136-145)
[2019-08-07] MEDS ORDERED: Sodium Chloride 0.9% 10 ML Syringe FLUSH PRN (15:54)
[2019-08-07] MEDS ORDERED: Ondansetron 4 MG/2 ML SDV IV PRN (15:54)
[2019-08-07] MEDS ORDERED: Ondansetron 4 MG Tab.DIS PO PRN (15:54)
[2019-08-07] MEDS: cefTRIAXone 1 GM Vial IVPUSH SCH (16:25)
[2019-08-07] MEDS: Albuterol/Ipratropium 3.0-0.5 MG/3 ML Neb Soln NEB SCH ×2 (16:26→21:08)
[2019-08-07] MEDS: Azithromycin 500 MG in Sodium Chloride 0.9% 250 ML IV SCH (16:27)
[2019-08-07] MEDS ORDERED: Non-Formulary Medication 1 Each (Vit A/C/E Ac/Znox/Cupric Oxide [Eye Vitamin-Minerals Tabl PO SCH (20:00)
[2019-08-07] MEDS: Fluticasone Propionate Nasal Spray 16 GM Bottle NAS SCH (21:06)
[2019-08-07] MEDS: guaiFENesin 200 MG Tab PO SCH (21:06)
[2019-08-07] MEDS: Beta-Carotene (Vitamin A) w/Vitamin C & E plus Minerals Tab PO SCH (21:06)
[2019-08-07] MEDS: Budesonide 0.5 MG/2 ML Neb Susp NEB PRN (21:07)
[2019-08-07] MEDS: Acetaminophen 325 MG Tab PO PRN (21:24)
[2019-08-07] MEDS: ALPRAZolam 0.25 MG Tab PO PRN (21:24)
[2019-08-08] MEDS: Pantoprazole 40 MG Tab.CR PO SCH (06:02)
[2019-08-08 07:21] LABS: CHLORIDE,CL 101 mEq/L (98-106); SODIUM,NA 137 mEq/L (136-145)
[2019-08-08] MEDS ORDERED: FOLIC ACID PO SCH (08:00)
[2019-08-08] MEDS ORDERED: [UNRECOGNIZED DRUG - OTHER] PO SCH (08:00)
[2019-08-08] MEDS ORDERED: ASCORBIC ACID PO SCH (08:00)
[2019-08-08] MEDS ORDERED: CYANOCOBALAMIN PO SCH (08:00)
[2019-08-08] MEDS: Beta-Carotene (Vitamin A) w/Vitamin C & E plus Minerals Tab PO SCH ×2 (08:16→19:57)
[2019-08-08] MEDS: guaiFENesin 200 MG Tab PO SCH ×3 (08:17→19:57)
[2019-08-08] MEDS: Acetaminophen 325 MG Tab PO PRN ×4 (08:18→21:59)
[2019-08-08] MEDS: Diltiazem 180 MG Cap.CD PO SCH (08:18)
[2019-08-08] MEDS: Albuterol/Ipratropium 3.0-0.5 MG/3 ML Neb Soln NEB SCH ×4 (08:21→19:54)
[2019-08-08] MEDS: Fluticasone Propionate Nasal Spray 16 GM Bottle NAS SCH ×2 (08:21→19:56)
[2019-08-08] MEDS: Budesonide 0.5 MG/2 ML Neb Susp NEB PRN ×2 (08:29→20:23)
[2019-08-08] MEDS: Warfarin 2.5 MG Tab PO SCH (12:02)
--- NOTE | 2019-08-08 13:37 | PN ---
DATE: S: Khushboo was admitted by Sharyn Clinton PA-C for URI and COPD exacerbation. She presented with typical viral syndrome type picture with muscle aches, fevers, cough. Workup showed a normal chest x-ray without any pneumonia present, typical COPD changes and cardiomegaly. The patient did present with a fever and blood cultures were obtained, still waiting. O: She did have negative influenza titers and did have a COVID screen. She has been stable since admission, and has ran some low-grade temps with vital signs been fine. She is maintaining her sats on 2 L, which is normal for her and she is an O2 dependent COPD patient. She was started on IV Rocephin and Zithromax. COVID precautions were taken for the exam. HEENT: Grossly benign. NECK: Supple. CHEST: Lungs sounds are diminished but no audible rales and minimal end- expiratory wheeze in the apices. CARDIAC: Tones are irregular, but controlled. ABDOMEN: Soft. EXTREMITIES: She has no peripheral edema. ASSESSMENT: 1. LIKELY PNEUMONIA WITH CHRONIC OBSTRUCTIVE PULMONARY DISEASE EXACERBATION. 2. CHRONIC ATRIAL FIBRILLATION. P: The patient is coughing up sputum. We will try to get a sputum culture. Otherwise, continue all cares and monitor labs including her INR's at this time. RAFAELA/NICHOLAS /[id number]
[2019-08-08] MEDS: Azithromycin 500 MG in Sodium Chloride 0.9% 250 ML IV SCH (16:39)
[2019-08-08] MEDS: cefTRIAXone 1 GM Vial IVPUSH SCH (16:39)
[2019-08-08] MEDS: ALPRAZolam 0.25 MG Tab PO PRN (17:25)
[2019-08-08] MEDS: Carbidopa/Levodopa 25-100 MG Tab PO PRN (19:57)
[2019-08-09] MEDS: Acetaminophen 325 MG Tab PO PRN ×4 (04:07→19:15)
[2019-08-09] MEDS: Pantoprazole 40 MG Tab.CR PO SCH (06:26)
[2019-08-09] MEDS: Albuterol/Ipratropium 3.0-0.5 MG/3 ML Neb Soln NEB SCH ×4 (07:45→19:16)
[2019-08-09] MEDS: Beta-Carotene (Vitamin A) w/Vitamin C & E plus Minerals Tab PO SCH ×2 (07:47→19:16)
[2019-08-09] MEDS: guaiFENesin 200 MG Tab PO SCH ×3 (07:47→19:16)
[2019-08-09] MEDS: Diltiazem 180 MG Cap.CD PO SCH (07:51)
[2019-08-09] MEDS: Fluticasone Propionate Nasal Spray 16 GM Bottle NAS SCH ×2 (07:51→20:38)
[2019-08-09 08:00] LABS: CHLORIDE,CL 99 mEq/L (98-106); SODIUM,NA 137 mEq/L (136-145)
[2019-08-09] MEDS: ARFORMOTEROL 15 MCG NEB SCH ×5 (08:00→20:13)
[2019-08-09] MEDS: Budesonide 0.5 MG/2 ML Neb Susp NEB PRN (08:58)
--- NOTE | 2019-08-09 11:37 | PCM.PN ---
- General Info Date of Service: 08/09/19 Functional Status: Reports: Pain Controlled, Tolerating Diet, Ambulating, Urinating - Review of Systems General: Reports: Fever, Weakness (generalized) HEENT: Reports: Sinus Congestion, Rhinitis Pulmonary: Reports: Shortness of Breath (improving), Cough, Sputum. Denies: Hemoptysis Cardiovascular: Reports: No Symptoms Gastrointestinal: Reports: No Symptoms Genitourinary: Reports: No Symptoms Musculoskeletal: Reports: No Symptoms Skin: Reports: No Symptoms Neurological: Reports: No Symptoms Psychiatric: Reports: No Symptoms - Patient Data Vitals - Most Recent: Last Vital Signs Temp 99.0 F 08/09/19 08:00 Pulse 93 08/09/19 08:00 Resp 20 08/09/19 08:00 BP 120/59 L 08/09/19 08:00 Pulse Ox 96 08/09/19 08:00 Weight - Most Recent: 79 lb 8 oz Lab Results Last 24 Hours: Laboratory Results - last 24 hr 08/07/19 08/09/19 08/09/19 Range/Units 14:30 07:40 07:40 WBC 9.4 (5.0-10.0) 10^3/uL RBC 3.59 L (4.00-5.50) 10^6/uL Hgb 10.8 L (12.0-16.0) g/dL Hct 32.9 L (37.0-47.0) % MCV 91.6 (82.0-94.0) fL MCH 30.1 (27.0-32.0) pg MCHC 32.8 L (33.0-38.0) g/dL RDW Coeff of Naomi 14.2 (11.0-15.0) % Plt Count 129 L (150-400) 10^3/uL Neut % (Auto) 82.6 (35-85) % Lymph % (Auto) 7.6 L (10-55) % [place] % (Auto) 8.2 (0-16) % Eos % (Auto) 1.4 (0-5) % Baso % (Auto) 0.2 (0-3) % Neut # (Auto) 7.74 H (1.80-7.00) 10^3/uL Lymph # (Auto) 0.71 L (1.00-4.80) 10^3/uL [place] # (Auto) 0.77 (0.00-0.80) 10^3/uL Eos # (Auto) 0.13 (0.00-0.45) 10^3/uL Baso # (Auto) 0.02 10^3/uL PT 13.4 H (9.7-12.3) SEC INR 1.33 H (0.92-1.18) Sodium (136-145) mEq/L Potassium (3.5-5.0) mEq/L Chloride (98-106) mEq/L Carbon Dioxide (21-32) mmol/L BUN (7-18) mg/dL Creatinine (0.6-1.0) mg/dL Est Cr Clr Drug Dosing mL/min Estimated GFR (MDRD) (>=60) mL/min Glucose (75-99) mg/dL Calcium (8.4-10.1) mg/dL COVID-19 PCR Not detected (NOT DETECT) 08/09/19 Range/Units 07:40 WBC (5.0-10.0) 10^3/uL RBC (4.00-5.50) 10^6/uL Hgb (12.0-16.0) g/dL Hct (37.0-47.0) % MCV (82.0-94.0) fL MCH (27.0-32.0) pg MCHC (33.0-38.0) g/dL RDW Coeff of Naomi (11.0-15.0) % Plt Count (150-400) 10^3/uL Neut % (Auto) (35-85) % Lymph % (Auto) (10-55) % [place] % (Auto) (0-16) % Eos % (Auto) (0-5) % Baso % (Auto) (0-3) % Neut # (Auto) (1.80-7.00) 10^3/uL Lymph # (Auto) (1.00-4.80) 10^3/uL [place] # (Auto) (0.00-0.80) 10^3/uL Eos # (Auto) (0.00-0.45) 10^3/uL Baso # (Auto) 10^3/uL PT (9.7-12.3) SEC INR (0.92-1.18) Sodium 137 (136-145) mEq/L Potassium 3.8 (3.5-5.0) mEq/L Chloride 99 (98-106) mEq/L Carbon Dioxide 32 (21-32) mmol/L BUN 15 (7-18) mg/dL Creatinine 0.6 (0.6-1.0) mg/dL Est Cr Clr Drug Dosing 46.83 mL/min Estimated GFR (MDRD) > 60 (>=60) mL/min Glucose 101 H (75-99) mg/dL Calcium 9.2 (8.4-10.1) mg/dL COVID-19 PCR (NOT DETECT) Filiberto Results Last 24 Hours: Microbiology 08/08/19 17:00 Gram Stain - Preliminary Sputum - Expectorated Sputum Culture - Preliminary 08/07/19 15:10 Aerobic Blood Culture - Preliminary Blood - Venous - Lab Draw NO GROWTH AFTER 1 DAY Anaerobic Blood Culture - Preliminary NO GROWTH AFTER 1 DAY 08/07/19 15:10 Aerobic Blood Culture - Preliminary Blood - Venous NO GROWTH AFTER 1 DAY Anaerobic Blood Culture - Preliminary NO GROWTH AFTER 1 DAY Med Orders - Current: Current Medications Acetaminophen (Tylenol) 650 mg PO Q4H PRN PRN Reason: Pain (Mild 1-3)/fever Last Admin: 08/09/19 07:50 Dose: 650 mg Albuterol (Proventil Neb Soln) 2.5 mg NEB Q4H PRN PRN Reason: Shortness Of Breath/wheezing Albuterol/Ipratropium (Duoneb 3.0-0.5 Mg/3 Ml) 3 ml NEB QIDRT [facility] Last Admin: 08/09/19 07:45 Dose: 3 ml Alprazolam (Xanax) 0.25 mg PO Q8H PRN PRN Reason: Anxiety Last Admin: 08/08/19 17:25 Dose: 0.25 mg Budesonide (Pulmicort) 0.25 mg NEB BID PRN PRN Reason: Shortness of Breath Last Admin: 08/09/19 08:58 Dose: 0.25 mg Carbidopa/Levodopa (Sinemet 25-100 Mg) 1 - 2 tab PO BEDTIME PRN PRN Reason: Spasms Last Admin: 08/08/19 19:57 Dose: 1 tab Ceftriaxone Sodium (Rocephin) 1 gm IVPUSH Q24H [facility] Last Admin: 08/08/19 16:39 Dose: 1 gm Diltiazem HCl (Cardizem Cd) 360 mg PO DAILY [facility] Last Admin: 08/09/19 07:51 Dose: 360 mg Fluticasone Propionate (Flonase) 0 gm BRIANNA BID [facility] Last Admin: 08/09/19 07:51 Dose: 1 spray Guaifenesin (Organ-I Nr) 200 mg PO TID [facility] Last Admin: 08/09/19 07:47 Dose: 200 mg Azithromycin 500 mg/ Sodium (Chloride) 250 mls @ 250 mls/hr IV Q24H [facility] Last Admin: 08/08/19 16:39 Dose: 250 mls/hr Fluconazole/Sodium Chloride (200 mg/ Premix) 100 mls @ 100 mls/hr IV Q24H [facility] Multivitamins/Minerals (Prosight) 2 tab PO BID [facility] Last Admin: 08/09/19 07:47 Dose: 2 tab Non-Formulary Medication (Arformoterol [Brovana]) 15 mcg NEB BID [facility] Ondansetron HCl (Zofran Odt) 4 mg PO Q4H PRN PRN Reason: nausea, able to take PO Ondansetron HCl (Zofran) 4 mg IV Q4H PRN PRN Reason: Nausea/Vomiting Pantoprazole Sodium (Protonix) 40 mg PO ACBREAKFAST [facility] Last Admin: 08/09/19 06:26 Dose: 40 mg Sodium Chloride (Saline Flush) 10 ml FLUSH ASDIRECTED PRN PRN Reason: Keep Vein Open Warfarin Sodium (Coumadin) 2.5 mg PO SuTuWeThSa@1200 [facility] Warfarin Sodium (Coumadin) 1.25 mg PO MoFr@1200 [facility] Last Admin: 08/08/19 12:02 Dose: 1.25 mg Discontinued Medications Non-Formulary Medication (Iron,Carbonyl/Vit C/Vit B12/Fa [Iron 100 Plus Tablet] ) 1 each PO DAILY [facility] - Exam Quality Assessment: Supplemental Oxygen (2L NC) General: Alert, Oriented, Cooperative, No Acute Distress Neck: Supple, Trachea Midline, No JVD, No Thyromegaly Lungs: Decreased Breath Sounds (mildly throughout), Rhonchi, Wheezing (mild scant throughout) Cardiovascular: Regular Rate, Regular Rhythm GI/Abdominal Exam: Soft, Non-Tender Back Exam: Normal Inspection, Full Range of Motion Extremities: Normal Inspection, Normal Range of Motion, Non-Tender, No Pedal Edema, Normal Capillary Refill Peripheral Pulses: 2+: Radial (L), Radial (R), Posterior Tibial (L), Posterior Tibial (R) Skin: Warm, Dry, Intact Neurological: No New Focal Deficit Psy/Mental Status: Alert, Normal Affect, Normal Mood Sepsis Event Note - Evaluation Sepsis Screening Result: No Definite Risk - Focused Exam Vital Signs: Vital Signs Temp Pulse Resp BP Pulse Ox 08/09/19 08:00 99.0 F 93 20 120/59 L 96 08/09/19 04:00 99.3 F 95 18 113/79 95 08/08/19 23:59 99.3 F 110 H 18 108/68 96 Date Exam was Performed: 08/09/19 Time Exam was Performed: 11:54 - Problem List Review Problem List Initiated/Reviewed/Updated: Yes - My Orders Last 24 Hours: My Active Orders 08/09/19 11:30 Fluconazole/Normal Saline [Diflucan in NS 200 MG/100 ML] 200 mg Premix Bag 1 bag IV Q24H 08/10/19 05:00 BMP [BASIC METABOLIC PANEL,BMP] [CHEM] DAILY CBC WITH AUTO DIFF [HEME] DAILY 08/10/19 05:11 CRP [C-REACTIVE PROTEIN] [CHEM] AM - Plan Plan:: This patient is a pleasant 73 year old female that was admitted for COPD exacerbation vs pneumonia. The patient today reports that she is feeling a little better. She reports that she is mildly short of breath, but reports she always is. She does report that she wears oxygen at home only at bedtime, and as she needs it. Patient reports that she has been wearing oxygen here due to feeling short of breath. Patient is currently at 2L NC at 96%. Attempted to wean patient from oxygen while at rest and on RA she fell to 86%. Patient is subtherapeutic INR on coumadin, will increase this dose today. Patient CRP is elevated yesterday, will redraw tomorrow. Labs otherwise unremarkable. Except her sputum cx does show yeast. Upon exam, no thrush appreciated, so will start on Fluconazole. Aware may increase bleeding risks on coumadin, but subtherapeutic currently. Will continue her admit. Plan to see her again tomorrow and her PCP Sunday.
[2019-08-09] MEDS: Fluconazole/Normal Saline 200 MG in Premix Bag 1 BAG IV SCH (11:52)
[2019-08-09] MEDS ORDERED: Warfarin 2.5 MG Tab PO SCH (12:00)
[2019-08-09] MEDS: cefTRIAXone 1 GM Vial IVPUSH SCH (16:12)
[2019-08-09] MEDS: Azithromycin 500 MG in Sodium Chloride 0.9% 250 ML IV SCH (16:19)
[2019-08-09] MEDS: Albuterol 0.083% 2.5 MG/3 ML Neb Soln NEB PRN (20:13)
[2019-08-09] MEDS: Carbidopa/Levodopa 25-100 MG Tab PO PRN (21:02)
[2019-08-09] MEDS: Temazepam 15 MG Cap PO PRN (21:02)
[2019-08-10] MEDS: Acetaminophen 325 MG Tab PO PRN ×3 (01:11→20:36)
[2019-08-10] MEDS: Pantoprazole 40 MG Tab.CR PO SCH (06:29)
[2019-08-10] MEDS: Albuterol/Ipratropium 3.0-0.5 MG/3 ML Neb Soln NEB SCH ×4 (07:26→20:15)
[2019-08-10] MEDS: Beta-Carotene (Vitamin A) w/Vitamin C & E plus Minerals Tab PO SCH ×2 (07:30→20:09)
[2019-08-10] MEDS: Diltiazem 180 MG Cap.CD PO SCH (07:30)
[2019-08-10] MEDS: guaiFENesin 200 MG Tab PO SCH ×3 (07:30→20:09)
[2019-08-10] MEDS: Budesonide 0.5 MG/2 ML Neb Susp NEB PRN (07:31)
[2019-08-10] MEDS: Fluticasone Propionate Nasal Spray 16 GM Bottle NAS SCH ×2 (07:34→20:10)
[2019-08-10] MEDS: ARFORMOTEROL 15 MCG NEB SCH ×2 (07:39→20:15)
[2019-08-10 07:43] LABS: CHLORIDE,CL 101 mEq/L (98-106); SODIUM,NA 137 mEq/L (136-145)
[2019-08-10] MEDS ORDERED: methylPREDNISolone Sodium Succinate 125 MG/2 ML SDV IVPUSH SCH (09:45)
--- NOTE | 2019-08-10 09:47 | PCM.PN ---
- General Info Date of Service: 08/10/19 Functional Status: Reports: Tolerating Diet, Ambulating, Urinating - Review of Systems General: Denies: Fever (afebrile today) HEENT: Reports: Sinus Congestion, Rhinitis, Other (left earache, chronic, since per patient comes and goes. ) Pulmonary: Reports: Shortness of Breath, Cough, Sputum, Hemoptysis, Wheezing Cardiovascular: Reports: No Symptoms Gastrointestinal: Reports: No Symptoms Genitourinary: Reports: No Symptoms Musculoskeletal: Reports: No Symptoms Skin: Reports: No Symptoms Neurological: Reports: No Symptoms Psychiatric: Reports: No Symptoms - Patient Data Vitals - Most Recent: Last Vital Signs Temp 97.6 F 08/10/19 07:41 Pulse 93 08/10/19 07:41 Resp 16 08/10/19 07:41 BP 130/58 L 08/10/19 07:41 Pulse Ox 96 08/10/19 07:41 Weight - Most Recent: 79 lb 8 oz Lab Results Last 24 Hours: Laboratory Results - last 24 hr 08/10/19 08/10/19 08/10/19 Range/Units 07:15 07:15 07:15 WBC 6.1 (5.0-10.0) 10^3/uL RBC 3.37 L (4.00-5.50) 10^6/uL Hgb 10.1 L (12.0-16.0) g/dL Hct 31.0 L (37.0-47.0) % MCV 92.0 (82.0-94.0) fL MCH 30.0 (27.0-32.0) pg MCHC 32.6 L (33.0-38.0) g/dL RDW Coeff of Naomi 14.1 (11.0-15.0) % Plt Count 137 L (150-400) 10^3/uL Neut % (Auto) 77.3 (35-85) % Lymph % (Auto) 9.9 L (10-55) % [place] % (Auto) 10.0 (0-16) % Eos % (Auto) 2.6 (0-5) % Baso % (Auto) 0.2 (0-3) % Neut # (Auto) 4.70 (1.80-7.00) 10^3/uL Lymph # (Auto) 0.60 L (1.00-4.80) 10^3/uL [place] # (Auto) 0.61 (0.00-0.80) 10^3/uL Eos # (Auto) 0.16 (0.00-0.45) 10^3/uL Baso # (Auto) 0.01 10^3/uL PT (9.7-12.3) SEC INR (0.92-1.18) Sodium 137 (136-145) mEq/L Potassium 3.8 (3.5-5.0) mEq/L Chloride 101 (98-106) mEq/L Carbon Dioxide 30 (21-32) mmol/L BUN 13 (7-18) mg/dL Creatinine 0.6 (0.6-1.0) mg/dL Est Cr Clr Drug Dosing 46.83 mL/min Estimated GFR (MDRD) > 60 (>=60) mL/min Glucose 84 (75-99) mg/dL Calcium 8.8 (8.4-10.1) mg/dL C-Reactive Protein 30.6 H (0.2-0.8) mg/dL 08/10/19 Range/Units 07:15 WBC (5.0-10.0) 10^3/uL RBC (4.00-5.50) 10^6/uL Hgb (12.0-16.0) g/dL Hct (37.0-47.0) % MCV (82.0-94.0) fL MCH (27.0-32.0) pg MCHC (33.0-38.0) g/dL RDW Coeff of Naomi (11.0-15.0) % Plt Count (150-400) 10^3/uL Neut % (Auto) (35-85) % Lymph % (Auto) (10-55) % [place] % (Auto) (0-16) % Eos % (Auto) (0-5) % Baso % (Auto) (0-3) % Neut # (Auto) (1.80-7.00) 10^3/uL Lymph # (Auto) (1.00-4.80) 10^3/uL [place] # (Auto) (0.00-0.80) 10^3/uL Eos # (Auto) (0.00-0.45) 10^3/uL Baso # (Auto) 10^3/uL PT 14.2 H (9.7-12.3) SEC INR 1.41 H (0.92-1.18) Sodium (136-145) mEq/L Potassium (3.5-5.0) mEq/L Chloride (98-106) mEq/L Carbon Dioxide (21-32) mmol/L BUN (7-18) mg/dL Creatinine (0.6-1.0) mg/dL Est Cr Clr Drug Dosing mL/min Estimated GFR (MDRD) (>=60) mL/min Glucose (75-99) mg/dL Calcium (8.4-10.1) mg/dL C-Reactive Protein (0.2-0.8) mg/dL Filiberto Results Last 24 Hours: Microbiology 08/08/19 17:00 Gram Stain - Final Sputum - Expectorated Sputum Culture - Preliminary 08/07/19 15:10 Aerobic Blood Culture - Preliminary Blood - Venous - Lab Draw NO GROWTH AFTER 2 DAYS Anaerobic Blood Culture - Preliminary NO GROWTH AFTER 2 DAYS 08/07/19 15:10 Aerobic Blood Culture - Preliminary Blood - Venous NO GROWTH AFTER 2 DAYS Anaerobic Blood Culture - Preliminary NO GROWTH AFTER 2 DAYS Med Orders - Current: Current Medications Acetaminophen (Tylenol) 650 mg PO Q4H PRN PRN Reason: Pain (Mild 1-3)/fever Last Admin: 08/10/19 07:30 Dose: 650 mg Albuterol (Proventil Neb Soln) 2.5 mg NEB Q4H PRN PRN Reason: Shortness Of Breath/wheezing Last Admin: 08/09/19 20:13 Dose: 2.5 mg Albuterol/Ipratropium (Duoneb 3.0-0.5 Mg/3 Ml) 3 ml NEB QIDRT HERON Last Admin: 08/10/19 07:26 Dose: 3 ml Alprazolam (Xanax) 0.25 mg PO Q8H PRN PRN Reason: Anxiety Last Admin: 08/08/19 17:25 Dose: 0.25 mg Budesonide (Pulmicort) 0.25 mg NEB BID PRN PRN Reason: Shortness of Breath Last Admin: 08/10/19 07:31 Dose: 0.25 mg Carbidopa/Levodopa (Sinemet 25-100 Mg) 1 - 2 tab PO BEDTIME PRN PRN Reason: Spasms Last Admin: 08/09/19 21:02 Dose: 2 tab Ceftriaxone Sodium (Rocephin) 1 gm IVPUSH Q24H [facility] Last Admin: 08/09/19 16:12 Dose: 1 gm Diltiazem HCl (Cardizem Cd) 360 mg PO DAILY [facility] Last Admin: 08/10/19 07:30 Dose: 360 mg Fluticasone Propionate (Flonase) 0 gm BRIANNA BID [facility] Last Admin: 08/10/19 07:34 Dose: 1 spray Guaifenesin (Organ-I Nr) 200 mg PO TID [facility] Last Admin: 08/10/19 07:30 Dose: 200 mg Azithromycin 500 mg/ Sodium (Chloride) 250 mls @ 250 mls/hr IV Q24H [facility] Last Admin: 08/09/19 16:19 Dose: 250 mls/hr Fluconazole/Sodium Chloride (200 mg/ Premix) 100 mls @ 100 mls/hr IV Q24H [facility] Last Admin: 08/09/19 11:52 Dose: 100 mls/hr Methylprednisolone Sodium Succinate (Solu-Medrol) 62.5 mg IVPUSH Q24H [facility] Multivitamins/Minerals (Prosight) 2 tab PO BID [facility] Last Admin: 08/10/19 07:30 Dose: 2 tab Arformoterol [ Brovana] 15 McgOwn Med 15 mcg NEB BID [facility] Last Admin: 08/10/19 07:39 Dose: 15 mcg Ondansetron HCl (Zofran Odt) 4 mg PO Q4H PRN PRN Reason: nausea, able to take PO Ondansetron HCl (Zofran) 4 mg IV Q4H PRN PRN Reason: Nausea/Vomiting Pantoprazole Sodium (Protonix) 40 mg PO ACBREAKFAST [facility] Last Admin: 08/10/19 06:29 Dose: 40 mg Sodium Chloride (Saline Flush) 10 ml FLUSH ASDIRECTED PRN PRN Reason: Keep Vein Open Temazepam (Restoril) 15 mg PO BEDTIME PRN PRN Reason: Sleep Last Admin: 08/09/19 21:02 Dose: 15 mg Warfarin Sodium (Coumadin) 1.25 mg PO MoFr@1200 [facility] Last Admin: 08/08/19 12:02 Dose: 1.25 mg Warfarin Sodium (Coumadin) 3 mg PO SuTuWeThSa@1200 [facility] Last Admin: 08/09/19 12:14 Dose: 3 mg Discontinued Medications Non-Formulary Medication (Iron,Carbonyl/Vit C/Vit B12/Fa [Iron 100 Plus Tablet] ) 1 each PO DAILY [facility] Warfarin Sodium (Coumadin) 2.5 mg PO SuTuWeThSa@1200 [facility] - Exam Quality Assessment: Supplemental Oxygen (2L NC) General: Alert, Oriented, Cooperative, No Acute Distress Neck: Supple, Trachea Midline, No JVD, No Thyromegaly Lungs: Decreased Breath Sounds, Rhonchi, Wheezing Cardiovascular: Regular Rate, Regular Rhythm GI/Abdominal Exam: Normal Bowel Sounds, Soft, Non-Tender Extremities: Normal Inspection, Normal Range of Motion, Non-Tender, No Pedal Edema, Normal Capillary Refill Peripheral Pulses: 2+: Radial (L), Radial (R), Posterior Tibial (L), Posterior Tibial (R) Skin: Warm, Dry, Intact Neurological: No New Focal Deficit, Normal Speech Psy/Mental Status: Alert, Normal Affect, Normal Mood Sepsis Event Note - Evaluation Sepsis Screening Result: No Definite Risk - Focused Exam Vital Signs: Vital Signs Temp Temp Pulse Resp BP Pulse Ox 08/10/19 07:41 97.6 F 93 16 130/58 L 96 08/10/19 00:00 98.8 F 96 18 100/49 L 95 Date Exam was Performed: 08/10/19 Time Exam was Performed: 09:47 - Problem List Review Problem List Initiated/Reviewed/Updated: Yes - My Orders Last 24 Hours: My Active Orders 08/09/19 11:30 Fluconazole/Normal Saline [Diflucan in NS 200 MG/100 ML] 200 mg Premix Bag 1 bag IV Q24H 08/09/19 12:00 Warfarin [Coumadin] 3 mg PO SuTuWeThSa@1200 08/09/19 16:38 Temazepam [Restoril] 15 mg PO BEDTIME PRN 08/10/19 09:45 methylPREDNISolone Sod Succ [Solu-MEDROL] 62.5 mg IVPUSH Q24H - Plan Plan:: 08/09/2019 0900 This patient is a pleasant 73 year old female that was admitted for COPD exacerbation vs pneumonia. The patient today reports that she is feeling a little better. She reports that she is mildly short of breath, but reports she always is. She does report that she wears oxygen at home only at bedtime, and as she needs it. Patient reports that she has been wearing oxygen here due to feeling short of breath. Patient is currently at 2L NC at 96%. Attempted to wean patient from oxygen while at rest and on RA she fell to 86%. Patient is subtherapeutic INR on coumadin, will increase this dose today. Patient CRP is elevated yesterday, will redraw tomorrow. Labs otherwise unremarkable. Except her sputum cx does show yeast. Upon exam, no thrush appreciated, so will start on Fluconazole. Aware may increase bleeding risks on coumadin, but subtherapeutic currently. Will continue her admit. Plan to see her again tomorrow and her PCP Sunday. 08/10/2019 0930 The patient today reports that she feels so/so. She reports that she has had some left ear pain, but does report that she has this chronically and it comes and goes. She reports she has had this since and chronic ear problems. The patient today reports her breathing is about the same as yesterday. She reports that she is ready to go home though. She reports that she really will push to go home tomorrow when she sees Dr. Oleary. Patient wbc is wnl. Her CRP did increase to 30 today. Since negative COVID, did start steroids. Patient has been afebrile today. Plan will be to repeat labs tomorrow, allow PCP to see, and possible discharge Sunday or Sunday on home oxygen. Did increase her coumadin yesterday.
[2019-08-10] MEDS: Fluconazole/Normal Saline 200 MG in Premix Bag 1 BAG IV SCH (11:07)
[2019-08-10] MEDS: cefTRIAXone 1 GM Vial IVPUSH SCH (16:03)
[2019-08-10] MEDS: ALPRAZolam 0.25 MG Tab PO PRN (16:11)
[2019-08-10] MEDS: Azithromycin 500 MG in Sodium Chloride 0.9% 250 ML IV SCH (16:13)
[2019-08-10] MEDS: Albuterol 0.083% 2.5 MG/3 ML Neb Soln NEB PRN (20:15)
[2019-08-10] MEDS: Temazepam 15 MG Cap PO PRN (21:44)
[2019-08-10] MEDS: Carbidopa/Levodopa 25-100 MG Tab PO PRN (21:44)
[2019-08-11] MEDS: Pantoprazole 40 MG Tab.CR PO SCH (06:26)
[2019-08-11] MEDS: guaiFENesin 200 MG Tab PO SCH (07:23)
[2019-08-11] MEDS: Beta-Carotene (Vitamin A) w/Vitamin C & E plus Minerals Tab PO SCH (07:23)
[2019-08-11] MEDS: Albuterol 0.083% 2.5 MG/3 ML Neb Soln NEB PRN (07:23)
[2019-08-11] MEDS: Diltiazem 180 MG Cap.CD PO SCH (07:23)
[2019-08-11] MEDS: Albuterol/Ipratropium 3.0-0.5 MG/3 ML Neb Soln NEB SCH ×2 (07:23→11:43)
[2019-08-11] MEDS: ARFORMOTEROL 15 MCG NEB SCH (07:24)
[2019-08-11] MEDS: Fluticasone Propionate Nasal Spray 16 GM Bottle NAS SCH (07:24)
[2019-08-11 07:26] VITALS: BP 118/60
[2019-08-11] MEDS ORDERED: methylPREDNISolone Sodium Succinate 125 MG/2 ML SDV IVPUSH SCH (08:00)
[2019-08-11] MEDS: Fluconazole/Normal Saline 200 MG in Premix Bag 1 BAG IV SCH (10:34)
[2019-08-11] MEDS: Warfarin 2.5 MG Tab PO SCH (11:42)
[2019-08-11 12:29] VITALS: PULSE 88
[2019-08-11] MEDS ORDERED: Azithromycin 500 MG in Sodium Chloride 0.9% 250 ML IV SCH (16:00)
--- NOTE | 2019-08-11 21:04 | DISCH ---
ADMISSION DIAGNOSES: 1. Upper respiratory infection. 2. Chronic obstructive pulmonary disease exacerbation. 3. Chronic atrial fibrillation, anticoagulation. DISCHARGE DIAGNOSIS: 1. PNEUMONIA WITH CHRONIC OBSTRUCTIVE PULMONARY DISEASE EXACERBATION. 2. CHRONIC ATRIAL FIBRILLATION. 3. SUBTHERAPEUTIC INR. 4. POSITIVE YEAST CULTURE SPUTUM. HISTORY: The patient is a pleasant female with known COPD and chronic atrial fibrillation, who was admitted for URI and COPD exacerbation by Hasmukh Sharyn Clinton with typical viral syndrome in our emergency room with muscle aches, fever, cough. She had a normal chest x-ray. Influenza and ultimately COVID swabs were done and negative. Blood cultures were obtained and the patient was admitted for appropriate cares. HOSPITAL COURSE: The patient was started on IV antibiotics and routine pulmonary cares and given supplemental oxygen. Over the course of the next 4 days, she had a steady improvement. She did have an initial bump in her CRPs for 2 or 3 days. She ultimately got a few doses of IV steroids and her CRP is coming down now. She has not spiked any temps. She was on a max of 3 L of oxygen. She is down off now and saturating at 93% to 95% on room air. She does use home O2 at night and will continue to do so at 2 L/min. Her blood cultures were negative as was her influenza and COVID swabs. She did have a positive sputum culture for yeast and she was started on oral Diflucan. She clinically looks stable for discharge. I am going to send her home on a finished course of Rocephin. She was on IV Rocephin and Zithromax in our facility. We will put her on a 10-day course of oral Diflucan as well. She was given the elevated dose of Coumadin to get her INR therapeutic, which is now. I will put her back to her normal dose of 2.5 mg daily, see her back in the middle of next week for repeat routine lab, INR, CBC, and CRP. COMPLICATIONS: During her stay were none. CONSULTATIONS: None. DISPOSITION: Discharged home. JUNG /[id number]
== END 2019-08-11 14:50 | disposition home or self-care (01) | DRG 190 ==
LOC: CC.ED 14:20 → CC.MS 15:26 → UNDOADMIN 15:26 → CC.MS 15:27 → UNDOADMIN 15:29 → CC.MS 08-09 11:21 → UNDODISIN 08-11 14:50
PROVIDERS: ADMIT Physician Assistant Medical; ATTEND Family Medicine
DX: J43.9 Emphysema, unspecified (principal); J18.9 Pneumonia, unspecified organism; I48.20 Chronic atrial fibrillation, unspecified; J44.1 Chronic obstructive pulmonary disease with (acute) exacerbation; B37.9 Candidiasis, unspecified; H54.7 Unspecified visual loss; J06.9 Acute upper respiratory infection, unspecified; M19.90 Unspecified osteoarthritis, unspecified site; F17.210 Nicotine dependence, cigarettes, uncomplicated; Z98.49 Cataract extraction status, unspecified eye; Z87.01 Personal history of pneumonia (recurrent); Z90.89 Acquired absence of other organs; I48.91 Unspecified atrial fibrillation; E78.00 Pure hypercholesterolemia, unspecified; Z88.1 Allergy status to other antibiotic agents; Z88.0 Allergy status to penicillin; F17.200 Nicotine dependence, unspecified, uncomplicated; Z79.01 Long term (current) use of anticoagulants; Z79.899 Other long term (current) drug therapy; Z20.828 Contact with and (suspected) exposure to other viral communicable diseases
CPT/HCPCS: 36415; 71045; 80048; 80053; 83605; 83615; 83880; 84484; 85025; 85379; 85610; 86140; 87040; 87070; 87205; 87804; 93005; 93010; 94640; 94760; 99285-25; A9270-GY; J0456; J0696; J1450; J2930; J7050; J7613-GY; J7620-GY; U0002

== ENCOUNTER 2020-01-24 09:26 | Emergency (ER) | payer MEDICARE, BC ==
[2020-01-24] MEDS ORDERED: predniSONE 20 MG Tab PO ONE (09:27)
[2020-01-24] MEDS ORDERED: Cefuroxime 250 MG Tab PO ONE (09:27)
[2020-01-24] MEDS ORDERED: Azithromycin 250 MG Tab PO ONE (09:27)
--- NOTE | 2020-01-24 10:19 | EDM.PDOC ---
ED HPI GENERAL MEDICAL PROBLEM - General Chief Complaint: General Stated Complaint: Fever, Body Aches Time Seen by Provider: 01/24/20 09:50 Source of Information: Reports: Patient, RN History Limitations: Reports: No Limitations - History of Present Illness INITIAL COMMENTS - FREE TEXT/NARRATIVE: States that she has a fever with muscle and body aches. She denies any changes in her breathing status. She wears O2 at bedtime and continues to smoke. She has mucus that is still clear but thick. No dysuria but has been urinating frequently but she doesn't feel like it is unusual. cough is unchanged for her emphysema. She states that she would not have come in except that she has muscle aches. Onset: Gradual Location: Reports: Generalized Associated Symptoms: Reports: Cough, cough w sputum. Denies: Chest Pain, Malaise, Nausea/Vomiting, Weakness - Related Data Allergies Allergy/AdvReac Type Severity Reaction Status Date / Time ciprofloxacin [From Cipro] Allergy Hives Verified 01/24/20 10:28 ciprofloxacin HCl Allergy Hives Verified 01/24/20 10:28 [From Cipro] Penicillins Allergy Rash Verified 01/24/20 10:28 Home Meds: Home Meds Albuterol Sulfate 2.5 mg NEB Q6H PRN 10/14/15 [History] Arformoterol [Brovana] 15 mcg NEB BID 10/14/15 [History] Budesonide [Pulmicort] 0.25 mg NEB BID PRN 10/14/15 [History] Carbidopa/Levodopa [Carbidopa-Levodopa 25-100 Tab] 1 - 2 tab PO BEDTIME PRN 10/14/15 [History] Vit A/C/E AC/Znox/Cupric Oxide [Eye Vitamin-Minerals Tablet] 2 tab PO BID 04/10/16 [History] Pantoprazole [ProTONIX] 40 mg PO ACBREAKFAST #30 tab.cr 04/12/16 [Rx] dilTIAZem HCL [Diltiazem 24Hr ER (LA)] 360 mg PO DAILY 09/05/17 [History] ALPRAZolam [Alprazolam] 0.25 mg PO Q8H PRN 03/28/18 [History] Fluticasone Propionate [Flovent] 1 spray NASBOTH BID 03/28/18 [History] Acetaminophen [Tylenol Extra Strength] 2 each PO ASDIRECTED PRN 01/02/19 [History] Iron,Carb/Vit C/Vit B12/Folic [Iron 100 Plus Tablet] 1 each PO DAILY 01/02/19 [History] Vit A/C/E AC/Znox/Cupric Oxide [Eye Vitamin-Minerals Tablet] 2 each PO BID 01/02/19 [History] Warfarin Sodium [Jantoven] 1 each PO DAILY 01/02/19 [History] Cefuroxime Axetil [Ceftin] 500 mg PO BID #14 tablet 08/11/19 [Rx] Past Medical History HEENT History: Reports: Cataract, Impaired Vision Cardiovascular History: Reports: Afib, High Cholesterol Respiratory History: Reports: COPD, Pneumonia, Recurrent Other Respiratory History: emphysema PUNCHER History: Reports: , Other (See Below) Other PUNCHER History: has enlarged area right groin; unsure if it is a hernia or enlarged lymph node or something else. Patient is scheduled for exploratory laparoscopy on to find out what is causing her pain in that area Musculoskeletal History: Reports: Osteoarthritis Psychiatric History: Reports: Anxiety - Past Surgical History HEENT Surgical History: Reports: Adenoidectomy, Cataract Surgery, Tonsillectomy Respiratory Surgical History: Reports: None Social & Family History - Family History Family Medical History: Noncontributory Cardiac: Reports: [place] - Tobacco Use Smoking Status *Q: Current Every Day Smoker Years of Tobacco use: 50 Packs/Tins Daily: 0.1 - Caffeine Use Caffeine Use: Reports: None - Recreational Drug Use Recreational Drug Use: No ED ROS GENERAL - Review of Systems Review Of Systems: See Below Constitutional: Reports: Fever. Denies: Chills, Weakness HEENT: Reports: No Symptoms Respiratory: Reports: Cough (chronic wth her emphysema) Cardiovascular: Denies: Chest Pain, Edema, Lightheadedness GI/Abdominal: Reports: No Symptoms : Reports: Frequency. Denies: Dysuria, Hematuria, Incontinence Musculoskeletal: Reports: Muscle Pain Skin: Reports: No Symptoms Neurological: Reports: No Symptoms Psychiatric: Reports: No Symptoms ED EXAM, GENERAL - Physical Exam Exam: See Below Exam Limited By: No Limitations General Appearance: Alert, WD/WN, No Apparent Distress Ears: Normal External Exam, Normal Canal, Normal TMs Throat/Mouth: Normal Inspection, Normal Oropharynx Head: Atraumatic, Normocephalic Neck: Normal Inspection, Supple, Non-Tender, Full Range of Motion Respiratory/Chest: No Respiratory Distress, Rhonchi. No: Respiratory Distress, Rales, Wheezing Cardiovascular: Irregularly Irregular GI/Abdominal: Normal Bowel Sounds, Soft, Non-Tender Back Exam: Normal Inspection, Full Range of Motion Extremities: Normal Inspection, No Pedal Edema, Normal Capillary Refill Neurological: Alert, Oriented Psychiatric: Normal Affect, Normal Mood Skin Exam: Warm, Dry, Intact Course - Vital Signs Last Recorded V/S: Last Vital Signs Temp 101.8 F H 01/24/20 09:40 Pulse 118 H 01/24/20 09:40 Resp 20 01/24/20 09:40 BP 137/73 01/24/20 09:40 Pulse Ox 90 L 01/24/20 09:40 - Orders/Labs/Meds Orders: Active Orders 24 hr Category Date Time Status Chest 2V [CR] Stat Exams 01/24/20 09:27 Taken C-REACTIVE PROTEIN [CHEM] Stat Lab 01/24/20 09:45 Received CBC WITH AUTO DIFF [HEME] Stat Lab 01/24/20 09:45 Received COMPREHENSIVE METABOLIC PN,CMP [CHEM] Stat Lab 01/24/20 09:45 Received CULTURE BLOOD [BC] Stat Lab 01/24/20 09:45 Received CULTURE BLOOD [BC] Stat Lab 01/24/20 10:05 Received D-DIMER QUANTITATIVE [COAG] Stat Lab 01/24/20 09:45 Received INR,PT,PROTHROMBIN TIME [COAG] Stat Lab 01/24/20 09:45 Received LACTIC ACID [CHEM] Stat Lab 01/24/20 09:45 Received MAGNESIUM [CHEM] Stat Lab 01/24/20 09:45 Received UA W/MICROSCOPIC [URIN] Stat Lab 01/24/20 09:55 Received Blood Culture x2 Reflex Set [OM.PC] Stat Oth 01/24/20 09:27 Ordered Labs: Laboratory Tests 01/24/20 Range/Units 09:25 SARS CoV-2 RNA Rapid LALO Negative (NEGATIVE) - Re-Assessments/Exams Free Text/Narrative Re-Assessment/Exam: 01/24/20 10:42 Discussed with pt that she has a right upper lobe pneumonia. She is adamant about not staying in the hospital at this time. She would like to try meds at home. I discussed with her that she has underlying emphysema and that she may not do well with that at home. She would like to try. Will give her dose of IV antibiotics and steroids and discharge with orals for home use. She has home oxygen and has sat monitor. She states that typically she runs 92-97% on room air. Discussed with her that she needs to be able to maintain that at home or return to be admitted. She voices understanding of the above. Departure - Departure Time of Disposition: 11:00 Disposition: Home, Self-Care 01 Condition: Fair Clinical Impression: Pneumonia - Discharge Information *PRESCRIPTION DRUG MONITORING PROGRAM REVIEWED*: Not Applicable *COPY OF PRESCRIPTION DRUG MONITORING REPORT IN PATIENT JULY: Not Applicable Referrals: Robe Oleary MD [Primary Care Provider] - Additional Instructions: hold coumadin sunday and sunday. Blood is too thin at this time ceftin 500 mg twice a day for 10 days- start today zithromax take 2 tabs today and then 1 tablet daily until gone- start today prednisone 40 mg daily for 5 day starting sunday You need to make appt with Dr. Oleary on Sunday for follow up lab work and INR. [phone] continue with the respiratory meds that you have at home as usual Sepsis Event Note (ED) - Evaluation Sepsis Screening Result: Possible Sepsis Risk - Focused Exam Vital Signs: Vital Signs Temp Pulse Resp BP Pulse Ox 01/24/20 09:40 101.8 F H 118 H 20 137/73 90 L - Problem List & Annotations (1) Pneumonia SNOMED Code(s): 156951497 Code(s): J18.9 - PNEUMONIA, UNSPECIFIED ORGANISM Status: Acute Priority: High Current Visit: Yes (2) COPD (chronic obstructive pulmonary disease) SNOMED Code(s): 81500375 Code(s): J44.9 - CHRONIC OBSTRUCTIVE PULMONARY DISEASE, UNSPECIFIED Status: Chronic Priority: High Current Visit: No Qualifiers: COPD type: COPD with acute lower respiratory infection Qualified Code(s): J44.0 - Chronic obstructive pulmonary disease with (acute) lower respiratory infection (3) Atrial fibrillation with RVR SNOMED Code(s): 576443395219763 Code(s): I48.91 - UNSPECIFIED ATRIAL FIBRILLATION Status: Chronic Priority: Medium Current Visit: No - Problem List Review Problem List Initiated/Reviewed/Updated: Yes - My Orders Last 24 Hours: My Active Orders 01/24/20 09:27 Chest 2V [CR] Stat Blood Culture x2 Reflex Set [OM.PC] Stat 01/24/20 09:45 C-REACTIVE PROTEIN [CHEM] Stat CBC WITH AUTO DIFF [HEME] Stat COMPREHENSIVE METABOLIC PN,CMP [CHEM] Stat CULTURE BLOOD [BC] Stat D-DIMER QUANTITATIVE [COAG] Stat INR,PT,PROTHROMBIN TIME [COAG] Stat LACTIC ACID [CHEM] Stat MAGNESIUM [CHEM] Stat 01/24/20 09:55 UA W/MICROSCOPIC [URIN] Stat 01/24/20 10:05 CULTURE BLOOD [BC] Stat - Assessment/Plan Last 24 Hours: My Active Orders 01/24/20 09:27 Chest 2V [CR] Stat Blood Culture x2 Reflex Set [OM.PC] Stat 01/24/20 09:45 C-REACTIVE PROTEIN [CHEM] Stat CBC WITH AUTO DIFF [HEME] Stat COMPREHENSIVE METABOLIC PN,CMP [CHEM] Stat CULTURE BLOOD [BC] Stat D-DIMER QUANTITATIVE [COAG] Stat INR,PT,PROTHROMBIN TIME [COAG] Stat LACTIC ACID [CHEM] Stat MAGNESIUM [CHEM] Stat 01/24/20 09:55 UA W/MICROSCOPIC [URIN] Stat 01/24/20 10:05 CULTURE BLOOD [BC] Stat
[2020-01-24 10:26] LABS: CHLORIDE,CL 100 mEq/L (98-106); SODIUM,NA 139 mEq/L (136-145)
[2020-01-24] MEDS ORDERED: cefTRIAXone 1 GM Vial IVPUSH ONE (10:41)
[2020-01-24] MEDS ORDERED: methylPREDNISolone Sodium Succinate 125 MG/2 ML SDV IVPUSH ONE (10:45)
[2020-01-24] MEDS ORDERED: Take Home: Cefuroxime 250 MG Tab, 2 Tab Pack PO ONE (10:54)
[2020-01-24] MEDS ORDERED: Take Home: predniSONE 20 MG, 2 Tab Pack PO ONE (10:55)
[2020-01-24] MEDS ORDERED: Take Home: Azithromycin 250 MG, 2 Tab Pack PO ONE (10:56)
[2020-01-24 10:57] VITALS: BP 127/64; PULSE 108
== END 2020-01-24 11:24 | disposition home or self-care (01) ==
LOC: CC.ED 09:26
DX: J18.9 Pneumonia, unspecified organism (principal); I48.91 Unspecified atrial fibrillation; J43.9 Emphysema, unspecified; F41.9 Anxiety disorder, unspecified; F17.210 Nicotine dependence, cigarettes, uncomplicated; Z88.1 Allergy status to other antibiotic agents; Z88.0 Allergy status to penicillin; Z79.899 Other long term (current) drug therapy; Z79.01 Long term (current) use of anticoagulants; Z20.828 Contact with and (suspected) exposure to other viral communicable diseases
CPT/HCPCS: 36415; 71046; 80053; 81001; 83605; 83735; 85025; 85379; 85610; 86140; 87040; 87086; 93005; 96374; 96375; 99284-25; A9270-GY; J0696; J2930; J7512; U0002

== ENCOUNTER 2020-05-24 13:09 | Inpatient (IN) | payer MEDICARE, BC ==
[2020-05-24 14:50] LABS: CHLORIDE,CL 100 mEq/L (98-106); SODIUM,NA 141 mEq/L (136-145)
[2020-05-24] MEDS ORDERED: Sodium Chloride 0.9% 10 ML Syringe FLUSH PRN (15:44)
[2020-05-24] MEDS ORDERED: Magnesium Sulfate/D5W 2 GM in Premix Bag 1 BAG IV ONE (15:48)
[2020-05-24] MEDS ORDERED: NS + KCl 20mEq/L 1,000 ML IV SCH (16:00)
[2020-05-24] MEDS: Pantoprazole 40 MG Vial IVPUSH SCH (17:22)
[2020-05-24] MEDS ORDERED: Sodium Chloride 0.9% 250 ML IV SCH ×2 (19:30→21:30)
[2020-05-24] MEDS: Albuterol 0.083% 2.5 MG/3 ML Neb Soln NEB PRN (19:53)
[2020-05-24] MEDS: Fluticasone Propionate Nasal Spray 16 GM Bottle NASBOTH SCH (19:53)
[2020-05-24] MEDS: Budesonide 0.5 MG/2 ML Neb Susp NEB PRN (19:53)
[2020-05-24] MEDS ORDERED: Melatonin 3 MG Tab PO PRN (20:00)
[2020-05-24] MEDS: ALPRAZolam 0.25 MG Tab PO PRN (20:53)
[2020-05-24] MEDS: Carbidopa/Levodopa 25-100 MG Tab PO PRN (22:06)
[2020-05-24] MEDS: Melatonin 3 MG Tab PO PRN (22:06)
[2020-05-25] MEDS: Pantoprazole 40 MG Vial IVPUSH SCH ×2 (04:59→17:26)
[2020-05-25] MEDS: Albuterol 0.083% 2.5 MG/3 ML Neb Soln NEB PRN ×2 (06:04→13:51)
[2020-05-25] MEDS: ALPRAZolam 0.25 MG Tab PO PRN (06:05)
[2020-05-25] MEDS: Acetaminophen 325 MG Tab PO PRN ×2 (06:20→20:29)
[2020-05-25] MEDS: Diltiazem 180 MG Cap.CD PO SCH (07:52)
[2020-05-25] MEDS: Fluticasone Propionate Nasal Spray 16 GM Bottle NASBOTH SCH ×2 (07:53→20:01)
--- NOTE | 2020-05-25 08:25 | PCM.PN ---
- General Info Date of Service: 05/25/20 Subjective Update: Khushboo is a 74 yo female who was admitted to the hospital yesterday from the clinic by Dr. Oleary for concerns of GI bleed. Patient admits since getting her Covid shot on the 12 of May she has felt awful. She was found to have an INR > 8 and was given Vitamin K yesterday 2.5mg. Initial Hgb was 8.7 yesterday. Patient did drop to 7.8 after about 6 hours. Proceeded with transfusion of 2 pRBC's. Patient states she had a horrible cough all night and feels when she coughs she can't breath. Functional Status: Reports: Tolerating Diet - Review of Systems General: Reports: Fatigue. Denies: Fever HEENT: Reports: No Symptoms Pulmonary: Reports: No Symptoms Cardiovascular: Reports: Edema. Denies: Chest Pain Gastrointestinal: Reports: Melena, Other (bloating). Denies: Constipation Genitourinary: Reports: No Symptoms Musculoskeletal: Reports: No Symptoms Skin: Reports: No Symptoms - Patient Data Vitals - Most Recent: Last Vital Signs Temp 97.2 F 05/25/20 07:41 Pulse 105 H 05/25/20 07:41 Resp 21 H 05/25/20 07:41 BP 158/77 H 05/25/20 07:41 Pulse Ox 92 L 05/25/20 07:41 Weight - Most Recent: 83 lb 4.8 oz I&O - Last 24 Hours: Intake & Output 05/24/20 05/25/20 05/25/20 22:59 06:59 14:59 Intake Total 0 780 Balance 0 780 Lab Results Last 24 Hours: Laboratory Results - last 24 hr 05/24/20 05/24/20 05/24/20 Range/Units 13:15 13:15 14:34 WBC 9.5 (5.0-10.0) 10^3/uL RBC 3.07 L (4.00-5.50) 10^6/uL Hgb 8.7 L (12.0-16.0) g/dL Hct 27.5 L (37.0-47.0) % MCV 89.6 (82.0-94.0) fL MCH 28.3 (27.0-32.0) pg MCHC 31.6 L (33.0-38.0) g/dL RDW Coeff of Naomi 13.9 (11.0-15.0) % Plt Count 273 (150-400) 10^3/uL Neut % (Auto) 81.9 (35-85) % Lymph % (Auto) 9.5 L (10-55) % Lane % (Auto) 7.8 (0-16) % Eos % (Auto) 0.4 (0-5) % Baso % (Auto) 0.4 (0-3) % Neut # (Auto) 7.79 H (1.80-7.00) 10^3/uL Lymph # (Auto) 0.90 L (1.00-4.80) 10^3/uL Lane # (Auto) 0.74 (0.00-0.80) 10^3/uL Eos # (Auto) 0.04 (0.00-0.45) 10^3/uL Baso # (Auto) 0.04 10^3/uL PT 79.6 H (9.7-12.3) SEC INR 8.04 H* (0.92-1.18) Sodium (136-145) mEq/L Potassium (3.5-5.0) mEq/L Chloride (98-106) mEq/L Carbon Dioxide (21-32) mmol/L BUN (7-18) mg/dL Creatinine (0.6-1.0) mg/dL Est Cr Clr Drug Dosing Estimated GFR (MDRD) (>=60) mL/min Glucose (75-99) mg/dL Calcium (8.4-10.1) mg/dL Magnesium 1.6 L (1.8-2.4) mg/dL SARS-CoV-2 RNA (LALO) (NEGATIVE) Blood Type Gel Antibody Screen Crossmatch 05/24/20 05/24/20 05/24/20 Range/Units 14:34 15:34 19:04 WBC (5.0-10.0) 10^3/uL RBC (4.00-5.50) 10^6/uL Hgb 7.8 L* (12.0-16.0) g/dL Hct (37.0-47.0) % MCV (82.0-94.0) fL MCH (27.0-32.0) pg MCHC (33.0-38.0) g/dL RDW Coeff of Naomi (11.0-15.0) % Plt Count (150-400) 10^3/uL Neut % (Auto) (35-85) % Lymph % (Auto) (10-55) % Lane % (Auto) (0-16) % Eos % (Auto) (0-5) % Baso % (Auto) (0-3) % Neut # (Auto) (1.80-7.00) 10^3/uL Lymph # (Auto) (1.00-4.80) 10^3/uL Lane # (Auto) (0.00-0.80) 10^3/uL Eos # (Auto) (0.00-0.45) 10^3/uL Baso # (Auto) 10^3/uL PT (9.7-12.3) SEC INR (0.92-1.18) Sodium 141 (136-145) mEq/L Potassium 3.3 L (3.5-5.0) mEq/L Chloride 100 (98-106) mEq/L Carbon Dioxide 31 (21-32) mmol/L BUN 14 (7-18) mg/dL Creatinine 0.8 (0.6-1.0) mg/dL Est Cr Clr Drug Dosing TNP Estimated GFR (MDRD) > 60 (>=60) mL/min Glucose 160 H D (75-99) mg/dL Calcium 9.2 (8.4-10.1) mg/dL Magnesium (1.8-2.4) mg/dL SARS-CoV-2 RNA (LALO) Negative (NEGATIVE) Blood Type Gel Antibody Screen Crossmatch 05/24/20 05/25/20 05/25/20 Range/Units 19:20 07:28 07:28 WBC (5.0-10.0) 10^3/uL RBC (4.00-5.50) 10^6/uL Hgb 10.5 L (12.0-16.0) g/dL Hct (37.0-47.0) % MCV (82.0-94.0) fL MCH (27.0-32.0) pg MCHC (33.0-38.0) g/dL RDW Coeff of Naomi (11.0-15.0) % Plt Count (150-400) 10^3/uL Neut % (Auto) (35-85) % Lymph % (Auto) (10-55) % Lane % (Auto) (0-16) % Eos % (Auto) (0-5) % Baso % (Auto) (0-3) % Neut # (Auto) (1.80-7.00) 10^3/uL Lymph # (Auto) (1.00-4.80) 10^3/uL Lane # (Auto) (0.00-0.80) 10^3/uL Eos # (Auto) (0.00-0.45) 10^3/uL Baso # (Auto) 10^3/uL PT 40.5 H (9.7-12.3) SEC INR 4.07 H* (0.92-1.18) Sodium (136-145) mEq/L Potassium (3.5-5.0) mEq/L Chloride (98-106) mEq/L Carbon Dioxide (21-32) mmol/L BUN (7-18) mg/dL Creatinine (0.6-1.0) mg/dL Est Cr Clr Drug Dosing Estimated GFR (MDRD) (>=60) mL/min Glucose (75-99) mg/dL Calcium (8.4-10.1) mg/dL Magnesium (1.8-2.4) mg/dL SARS-CoV-2 RNA (LALO) (NEGATIVE) Blood Type O POSITIVE Gel Antibody Screen Negative Crossmatch See Detail Med Orders - Current: Current Medications Acetaminophen (Tylenol) 650 mg PO Q4H PRN PRN Reason: Pain (Mild 1-3)/fever Last Admin: 05/25/20 06:20 Dose: 650 mg Documented by: Albuterol (Proventil Neb Soln) 2.5 mg NEB Q6H PRN PRN Reason: Shortness of Breath Last Admin: 05/25/20 06:04 Dose: 2.5 mg Documented by: Alprazolam (Xanax) 0.25 mg PO Q8H PRN PRN Reason: Anxiety Last Admin: 05/25/20 06:05 Dose: 0.25 mg Documented by: Benzonatate (Tessalon Perles) 100 mg PO TID PRN PRN Reason: Cough Budesonide (Pulmicort) 0.25 mg NEB BID PRN PRN Reason: Shortness of Breath Last Admin: 05/24/20 19:53 Dose: 0.25 mg Documented by: Carbidopa/Levodopa (Sinemet 25-100 Mg) 1 - 2 tab PO BEDTIME PRN PRN Reason: restless legs Last Admin: 05/24/20 22:06 Dose: 1 tab Documented by: Diltiazem HCl (Cardizem Cd) 360 mg PO DAILY [facility] Last Admin: 05/25/20 07:52 Dose: 360 mg Documented by: Fluticasone Propionate (Flonase) 0 gm NASBOTH BID [facility] Last Admin: 05/25/20 07:53 Dose: 1 spray Documented by: Potassium Chloride/Sodium Chloride (Normal Saline With 20 Meq Kcl) 1,000 mls @ 100 mls/hr IV ASDIRECTED [facility] Last Admin: 05/24/20 17:25 Dose: 100 mls/hr Documented by: Melatonin (Melatonin) 6 mg PO BEDTIME PRN PRN Reason: Sleep Last Admin: 05/24/20 22:06 Dose: 6 mg Documented by: Non-Formulary Medication (Arformoterol [Brovana]) 15 mcg NEB BID [facility] Pantoprazole Sodium (Protonix Iv) 40 mg IVPUSH Q12H [facility] Last Admin: 05/25/20 04:59 Dose: 40 mg Documented by: Phytonadione (Aquamephyton) 2.5 mg SUBCUT NOW ONE Stop: 05/25/20 08:31 Sodium Chloride (Saline Flush) 10 ml FLUSH ASDIRECTED PRN PRN Reason: Keep Vein Open Discontinued Medications Magnesium Sulfate/Dextrose 2 (gm/ Premix) 200 mls @ 100 mls/hr IV ONETIME ONE Stop: 05/24/20 17:47 Last Admin: 05/24/20 17:27 Dose: 100 mls/hr Documented by: Sodium Chloride (Normal Saline) 250 mls @ 50 mls/hr IV ASDIRECTED [facility] Stop: 05/24/20 21:00 Sodium Chloride (Normal Saline) 250 mls @ 50 mls/hr IV ASDIRECTED [facility] Melatonin (Melatonin) 5 mg PO BEDTIME PRN PRN Reason: Sleep Phytonadione (Aquamephyton) 5 mg SUBCUT NOW ONE Stop: 05/24/20 15:48 Last Admin: 05/24/20 17:12 Dose: 5 mg Documented by: - Exam General: Alert, Oriented, Cooperative, No Acute Distress Neck: Supple Lungs: Decreased Breath Sounds, Crackles (bases) Cardiovascular: Regular Rate, No Murmurs, Irregular Rhythm GI/Abdominal Exam: Normal Bowel Sounds, Soft, Tender (mild tenderness) Extremities: Normal Inspection, Pedal Edema (trace pitting bilaterally) Skin: Warm, Dry, Intact Neurological: No New Focal Deficit Psy/Mental Status: Alert, Normal Affect, Normal Mood Sepsis Event Note - Evaluation Sepsis Screening Result: No Definite Risk - Focused Exam Vital Signs: Vital Signs Temp Temp Pulse Resp BP Pulse Ox 05/25/20 07:41 97.2 F 105 H 21 H 158/77 H 92 L 05/25/20 04:00 98.5 F 87 18 136/70 91 L 05/25/20 02:35 98.5 F 85 16 132/65 90 L 05/25/20 02:30 98.5 F 84 16 139/68 92 L 05/25/20 01:30 99.2 F 92 18 133/69 91 L 05/25/20 01:00 99.3 F 96 18 141/61 H 92 L 05/25/20 00:30 99.5 F 81 18 127/62 91 L 05/25/20 00:10 100 F 99 18 137/63 91 L 05/25/20 00:00 100 F 99 18 137/63 91 L 05/24/20 23:25 100.5 F 88 18 129/55 L 95 05/24/20 22:42 99.7 F 84 18 118/55 L 92 L 05/24/20 21:42 99.5 F 84 20 115/51 L 93 L 05/24/20 21:27 99.6 F 84 20 90/71 95 05/24/20 21:12 98.7 F 94 20 151/52 H 90 L - Problem List & Annotations (1) GI bleed SNOMED Code(s): 81340540 Code(s): K92.2 - GASTROINTESTINAL HEMORRHAGE, UNSPECIFIED Status: Acute Current Visit: Yes Qualifiers: GI bleed type/associated pathology: melena Qualified Code(s): K92.1 - Melena (2) Elevated INR SNOMED Code(s): 200818507 Code(s): R79.1 - ABNORMAL COAGULATION PROFILE Status: Acute Current Visit: Yes - Problem List Review Problem List Initiated/Reviewed/Updated: Yes - My Orders Last 24 Hours: My Active Orders 05/24/20 20:00 Carbidopa/Levodopa [Sinemet 25-100 mg] 1 - 2 tab PO BEDTIME PRN 05/24/20 21:50 Melatonin 6 mg PO BEDTIME PRN 05/25/20 08:16 Benzonatate [Tessalon Perles] 100 mg PO TID PRN 05/26/20 05:11 BASIC METABOLIC PANEL,BMP [CHEM] AM CBC WITH AUTO DIFF [HEME] AM INR,PT,PROTHROMBIN TIME [COAG] AM PRO B-TYPE NATRIUR PEPT,BNPPRO [CHEM] Routine - Plan Plan:: Dr. Oleary did see Khushboo again this morning as well. Will give 2.5mg of Vitamin K again. INR is still high at 4. Hgb has improved to 10.5 today after receiving 2 units. BMP currently pending. Will order Tessalon Perles for cough. Repeat labs in am to include ProBnp.
[2020-05-25 08:29] LABS: CHLORIDE,CL 102 mEq/L (98-106); SODIUM,NA 140 mEq/L (136-145)
[2020-05-25] MEDS: Budesonide 0.5 MG/2 ML Neb Susp NEB PRN (08:36)
[2020-05-25] MEDS: Benzonatate 100 MG Cap PO PRN ×2 (08:36→20:01)
[2020-05-25] MEDS: ARFORMOTEROL 15 MCG/2 ML INH SCH ×3 (09:22→20:01)
[2020-05-25] MEDS: Potassium Chloride 10 MEQ Tab.ER PO SCH (17:26)
[2020-05-25] MEDS: Albuterol 0.083% 2.5 MG/3 ML Neb Soln NEB SCH (20:01)
[2020-05-25] MEDS: Budesonide 0.5 MG/2 ML Neb Susp NEB SCH (20:01)
[2020-05-25] MEDS: Carbidopa/Levodopa 25-100 MG Tab PO PRN ×2 (20:29→20:35)
[2020-05-25] MEDS: Melatonin 3 MG Tab PO PRN (20:31)
[2020-05-26] MEDS: Pantoprazole 40 MG Vial IVPUSH SCH ×2 (04:19→16:51)
[2020-05-26] MEDS: Potassium Chloride 10 MEQ Tab.ER PO SCH ×2 (07:15→16:52)
[2020-05-26] MEDS: Diltiazem 180 MG Cap.CD PO SCH (07:15)
[2020-05-26] MEDS: Albuterol 0.083% 2.5 MG/3 ML Neb Soln NEB SCH ×2 (07:16→20:28)
[2020-05-26] MEDS: Budesonide 0.5 MG/2 ML Neb Susp NEB SCH ×2 (07:16→20:34)
[2020-05-26] MEDS: Fluticasone Propionate Nasal Spray 16 GM Bottle NASBOTH SCH ×2 (07:18→20:45)
[2020-05-26] MEDS: ARFORMOTEROL 15 MCG/2 ML INH SCH ×2 (07:18→20:44)
[2020-05-26 07:31] LABS: CHLORIDE,CL 105 mEq/L (98-106); SODIUM,NA 143 mEq/L (136-145)
[2020-05-26] MEDS: Benzonatate 100 MG Cap PO PRN (07:50)
[2020-05-26] MEDS ORDERED: Furosemide 40 MG/4 ML VIAL IVPUSH ONE (08:54)
[2020-05-26] MEDS ORDERED: Sodium Chloride 0.65% Nasal Spray 45 ML Bottle NAS PRN (08:55)
[2020-05-26] MEDS ORDERED: Magnesium Sulfate (4.06 MEQ/ML) 1 GM/2 ML SDV IM ONE (08:57)
--- NOTE | 2020-05-26 09:03 | PCM.PN ---
- General Info Date of Service: 05/26/20 Subjective Update: Khushboo is a 74 yo female who was admitted to the hospital yesterday from the clinic by Dr. Oleary for concerns of GI bleed. Patient admits since getting her Covid shot on the 12 of May she has felt awful. She was found to have an INR > 8 and was given Vitamin K yesterday 2.5mg. Initial Hgb was 8.7 yesterday. Patient did drop to 7.8 after about 6 hours. Proceeded with transfusion of 2 pRBC's. Patient states she had a horrible cough all night and feels when she coughs she can't breath. 05/26/2020 Khushboo does have known history of atrial fibrillation and has been admitted for GI bleed. States she continues to feel not well. Nursing staff did notice her he art rate increasing this morning around 0700. She has known history of atrial fibrillation and has been on Cardizem CD 360mg daily. Has been on Coumadin as well which has been held since known GI bleed and being quite elevated. She complains of chest pain with inspiration. Questions whether she has pleurisy. Otherwise admits to having regular bowel movement for her the last couple of days. - Review of Systems General: Reports: Weakness, Malaise. Denies: Fever HEENT: Reports: Sinus Congestion Pulmonary: Reports: Pleuritic Chest Pain, Cough, Sputum Cardiovascular: Reports: Palpitations Gastrointestinal: Reports: No Symptoms Genitourinary: Reports: No Symptoms Musculoskeletal: Reports: No Symptoms Skin: Reports: No Symptoms - Patient Data Vitals - Most Recent: Last Vital Signs Temp 98.8 F 05/26/20 07:13 Pulse 128 H 05/26/20 07:13 Resp 21 H 05/26/20 07:13 BP 167/81 H 05/26/20 07:13 Pulse Ox 91 L 05/26/20 07:13 Weight - Most Recent: 83 lb 4.8 oz Lab Results Last 24 Hours: Laboratory Results - last 24 hr 05/25/20 05/26/20 05/26/20 Range/Units 17:15 07:09 07:09 WBC 11.9 H (5.0-10.0) 10^3/uL RBC 4.31 (4.00-5.50) 10^6/uL Hgb 10.0 L 12.2 (12.0-16.0) g/dL Hct 37.3 (37.0-47.0) % MCV 86.5 (82.0-94.0) fL MCH 28.3 (27.0-32.0) pg MCHC 32.7 L (33.0-38.0) g/dL RDW Coeff of Naomi 14.9 (11.0-15.0) % Plt Count 267 (150-400) 10^3/uL Neut % (Auto) 86.4 H (35-85) % Lymph % (Auto) 5.7 L (10-55) % [place] % (Auto) 5.9 (0-16) % Eos % (Auto) 1.8 (0-5) % Baso % (Auto) 0.2 (0-3) % Neut # (Auto) 10.29 H (1.80-7.00) 10^3/uL Lymph # (Auto) 0.68 L (1.00-4.80) 10^3/uL [place] # (Auto) 0.70 (0.00-0.80) 10^3/uL Eos # (Auto) 0.21 (0.00-0.45) 10^3/uL Baso # (Auto) 0.02 10^3/uL PT 14.5 H (9.7-12.3) SEC INR 1.45 H (0.92-1.18) Sodium (136-145) mEq/L Potassium (3.5-5.0) mEq/L Chloride (98-106) mEq/L Carbon Dioxide (21-32) mmol/L BUN (7-18) mg/dL Creatinine (0.6-1.0) mg/dL Est Cr Clr Drug Dosing mL/min Estimated GFR (MDRD) (>=60) mL/min Glucose (75-99) mg/dL Calcium (8.4-10.1) mg/dL Magnesium (1.8-2.4) mg/dL NT-Pro-B Natriuret Pep (0-1000) pg/mL 05/26/20 Range/Units 07:09 WBC (5.0-10.0) 10^3/uL RBC (4.00-5.50) 10^6/uL Hgb (12.0-16.0) g/dL Hct (37.0-47.0) % MCV (82.0-94.0) fL MCH (27.0-32.0) pg MCHC (33.0-38.0) g/dL RDW Coeff of Naomi (11.0-15.0) % Plt Count (150-400) 10^3/uL Neut % (Auto) (35-85) % Lymph % (Auto) (10-55) % [place] % (Auto) (0-16) % Eos % (Auto) (0-5) % Baso % (Auto) (0-3) % Neut # (Auto) (1.80-7.00) 10^3/uL Lymph # (Auto) (1.00-4.80) 10^3/uL [place] # (Auto) (0.00-0.80) 10^3/uL Eos # (Auto) (0.00-0.45) 10^3/uL Baso # (Auto) 10^3/uL PT (9.7-12.3) SEC INR (0.92-1.18) Sodium 143 (136-145) mEq/L Potassium 3.6 (3.5-5.0) mEq/L Chloride 105 (98-106) mEq/L Carbon Dioxide 31 (21-32) mmol/L BUN 11 (7-18) mg/dL Creatinine 0.6 (0.6-1.0) mg/dL Est Cr Clr Drug Dosing 48.32 mL/min Estimated GFR (MDRD) > 60 (>=60) mL/min Glucose 86 (75-99) mg/dL Calcium 9.5 (8.4-10.1) mg/dL Magnesium 1.6 L (1.8-2.4) mg/dL NT-Pro-B Natriuret Pep 1987 H (0-1000) pg/mL Filiberto Results Last 24 Hours: Microbiology 05/25/20 08:20 Occult Blood - Final Stool / Feces Med Orders - Current: Current Medications Acetaminophen (Tylenol) 650 mg PO Q4H PRN PRN Reason: Pain (Mild 1-3)/fever Last Admin: 05/25/20 20:29 Dose: 650 mg Documented by: Albuterol (Proventil Neb Soln) 2.5 mg NEB BID [facility] Last Admin: 05/26/20 07:16 Dose: 2.5 mg Documented by: Albuterol (Proventil Neb Soln) 2.5 mg NEB Q6H PRN PRN Reason: Dyspnea Last Admin: 05/25/20 13:51 Dose: 2.5 mg Documented by: Alprazolam (Xanax) 0.25 mg PO Q8H PRN PRN Reason: Anxiety Last Admin: 05/25/20 06:05 Dose: 0.25 mg Documented by: Benzonatate (Tessalon Perles) 100 mg PO TID PRN PRN Reason: Cough Last Admin: 05/26/20 07:50 Dose: 100 mg Documented by: Budesonide (Pulmicort) 0.25 mg NEB BID [facility] Last Admin: 05/26/20 07:16 Dose: 0.25 mg Documented by: Carbidopa/Levodopa (Sinemet 25-100 Mg) 1 - 2 tab PO BEDTIME PRN PRN Reason: restless legs Last Admin: 05/25/20 20:35 Dose: 2 tab Documented by: Diltiazem HCl (Cardizem Cd) 360 mg PO DAILY [facility] Last Admin: 05/26/20 07:15 Dose: 360 mg Documented by: Fluticasone Propionate (Flonase) 0 gm NASBOTH BID [facility] Last Admin: 05/26/20 07:18 Dose: 1 spray Documented by: Furosemide (Lasix) 40 mg IVPUSH ONETIME ONE Stop: 05/26/20 08:55 Magnesium Chloride (Mag-64) 64 mg PO BIDMEALS [facility] Magnesium Sulfate (Magnesium Sulfate 50%) 1 gm IM ONETIME ONE Stop: 05/26/20 08:58 Melatonin (Melatonin) 6 mg PO BEDTIME PRN PRN Reason: Sleep Last Admin: 05/25/20 20:31 Dose: 6 mg Documented by: Arformoterol [ Brovana] 15 Mcg/2ml Ptom 0 mcg INH BID [facility] Last Admin: 05/26/20 07:18 Dose: 15 mcg Documented by: Pantoprazole Sodium (Protonix Iv) 40 mg IVPUSH Q12H [facility] Last Admin: 05/26/20 04:19 Dose: 40 mg Documented by: Potassium Chloride (Klor-Con 10) 20 meq PO BIDMEALS [facility] Last Admin: 05/26/20 07:15 Dose: 20 meq Documented by: Sodium Chloride (Saline Flush) 10 ml FLUSH ASDIRECTED PRN PRN Reason: Keep Vein Open Sodium Chloride ([place] Nasal [place]) 0 ml BRIANNA QID PRN PRN Reason: Congestion Discontinued Medications Albuterol (Proventil Neb Soln) 2.5 mg NEB Q6H PRN PRN Reason: Shortness of Breath Last Admin: 05/25/20 06:04 Dose: 2.5 mg Documented by: Budesonide (Pulmicort) 0.25 mg NEB BID PRN PRN Reason: Shortness of Breath Last Admin: 05/25/20 08:36 Dose: 0.25 mg Documented by: Potassium Chloride/Sodium Chloride (Normal Saline With 20 Meq Kcl) 1,000 mls @ 100 mls/hr IV ASDIRECTED [facility] Last Admin: 05/24/20 17:25 Dose: 100 mls/hr Documented by: Magnesium Sulfate/Dextrose 2 (gm/ Premix) 200 mls @ 100 mls/hr IV ONETIME ONE Stop: 05/24/20 17:47 Last Admin: 05/24/20 17:27 Dose: 100 mls/hr Documented by: Sodium Chloride (Normal Saline) 250 mls @ 50 mls/hr IV ASDIRECTED [facility] Stop: 05/24/20 21:00 Sodium Chloride (Normal Saline) 250 mls @ 50 mls/hr IV ASDIRECTED [facility] Melatonin (Melatonin) 5 mg PO BEDTIME PRN PRN Reason: Sleep Phytonadione (Aquamephyton) 5 mg SUBCUT NOW ONE Stop: 05/24/20 15:48 Last Admin: 05/24/20 17:12 Dose: 5 mg Documented by: Phytonadione (Aquamephyton) 2.5 mg SUBCUT NOW ONE Stop: 05/25/20 08:31 Last Admin: 05/25/20 08:36 Dose: 2.5 mg Documented by: - Exam General: Alert, Oriented, Cooperative, No Acute Distress Neck: Supple Lungs: Normal Respiratory Effort, Decreased Breath Sounds Cardiovascular: Irregular Rhythm, Tachycardia GI/Abdominal Exam: Normal Bowel Sounds, Soft, Non-Tender, No Organomegaly, No Distention Extremities: Normal Inspection, No Pedal Edema Skin: Warm, Dry, Intact Psy/Mental Status: Alert, Normal Affect, Normal Mood Sepsis Event Note - Evaluation Sepsis Screening Result: No Definite Risk - Focused Exam Vital Signs: Vital Signs Temp Pulse Resp BP Pulse Ox 05/26/20 07:13 98.8 F 128 H 21 H 167/81 H 91 L 05/26/20 04:00 97.1 F 97 16 131/74 92 L 05/25/20 23:39 98.6 F 98 16 145/72 H 93 L - Problem List & Annotations (1) GI bleed SNOMED Code(s): 41948087 Code(s): K92.2 - GASTROINTESTINAL HEMORRHAGE, UNSPECIFIED Status: Acute Current Visit: Yes Qualifiers: GI bleed type/associated pathology: melena Qualified Code(s): K92.1 - Melena (2) Elevated INR SNOMED Code(s): 214003096 Code(s): R79.1 - ABNORMAL COAGULATION PROFILE Status: Acute Current Visit: Yes (3) Atrial fibrillation with RVR SNOMED Code(s): 045660586284794 Code(s): I48.91 - UNSPECIFIED ATRIAL FIBRILLATION Status: Chronic Priority: Medium Current Visit: No - Problem List Review Problem List Initiated/Reviewed/Updated: Yes - My Orders Last 24 Hours: My Active Orders 05/25/20 08:16 Benzonatate [Tessalon Perles] 100 mg PO TID PRN 05/25/20 17:30 Potassium Chloride [Klor-Con 10] 20 meq PO BIDMEALS 05/26/20 08:54 Furosemide [Lasix] 40 mg IVPUSH ONETIME ONE 05/26/20 08:55 Sodium Chloride 0.65% [[place] Nasal [place]] See Dose Instructions BRIANNA QID PRN 05/26/20 08:57 Chest 2V [CR] Routine Magnesium Sulfate [Magnesium Sulfate 50%] 1 gm IM ONETIME ONE 05/26/20 17:30 Magnesium Chloride [Mag-64] 64 mg PO BIDMEALS - Plan Plan:: Dr. Oleary did see Khushboo again this morning as well. Will give 2.5mg of Vitamin K again. INR is still high at 4. Hgb has improved to 10.5 today after receiving 2 units. BMP currently pending. Will order Tessalon Perles for cough. Repeat labs in am to include ProBnp. 05/26/2020 Khushboo's labs do show normal Hgb toda at 12.2. INR is currently 1.4. Patient does have known atrial fibrillation but started having a rapid ventricular response this morning up to 150's. Currently patient is asymptomatic. ProBNP is elevated. Will give 1 dose of IV Lasix. Patient's Cardizem CD 360mg was given roughly an hour ago. Will closely monitor. [place] Saline rinse ordered for nasal congestion. Chest x-ray pending. Will consult with Dr. Oleary in regards to GI bleed and whether anti-coagulation should be restarted.
[2020-05-26] MEDS: Albuterol 0.083% 2.5 MG/3 ML Neb Soln NEB PRN (14:04)
[2020-05-26] MEDS: Acetaminophen 325 MG Tab PO PRN (14:41)
[2020-05-26] MEDS: ALPRAZolam 0.25 MG Tab PO PRN (14:41)
[2020-05-26] MEDS: Magnesium Chloride 64 MG Tab.ER PO SCH (16:51)
[2020-05-26] MEDS: Carbidopa/Levodopa 25-100 MG Tab PO PRN (21:06)
[2020-05-26] MEDS: Melatonin 3 MG Tab PO PRN (21:06)
[2020-05-27] MEDS: Benzonatate 100 MG Cap PO PRN (01:08)
[2020-05-27] MEDS: Albuterol 0.083% 2.5 MG/3 ML Neb Soln NEB PRN ×2 (03:07→13:17)
[2020-05-27] MEDS: Pantoprazole 40 MG Vial IVPUSH SCH ×2 (05:42→17:12)
[2020-05-27] MEDS: Diltiazem 180 MG Cap.CD PO SCH (07:49)
[2020-05-27] MEDS: Magnesium Chloride 64 MG Tab.ER PO SCH ×2 (07:49→17:12)
[2020-05-27] MEDS: Potassium Chloride 10 MEQ Tab.ER PO SCH ×2 (07:49→17:11)
[2020-05-27] MEDS: Budesonide 0.5 MG/2 ML Neb Susp NEB SCH ×2 (07:49→19:59)
[2020-05-27] MEDS: Albuterol 0.083% 2.5 MG/3 ML Neb Soln NEB SCH ×2 (07:49→19:49)
[2020-05-27] MEDS: Fluticasone Propionate Nasal Spray 16 GM Bottle NASBOTH SCH ×2 (07:55→20:09)
[2020-05-27] MEDS: ARFORMOTEROL 15 MCG/2 ML INH SCH ×2 (07:57→20:09)
[2020-05-27 08:41] LABS: CHLORIDE,CL 104 mEq/L (98-106); SODIUM,NA 141 mEq/L (136-145)
[2020-05-27] MEDS ORDERED: Magnesium Sulfate/D5W 2 GM in Premix Bag 1 BAG IV ONE (09:27)
[2020-05-27] MEDS ORDERED: Temazepam 15 MG Cap PO PRN (09:31)
[2020-05-27] MEDS: Carvedilol 3.125 MG Tab PO SCH ×2 (11:16→19:57)
[2020-05-27] MEDS: ALPRAZolam 0.25 MG Tab PO PRN (12:45)
[2020-05-27] MEDS: Carbidopa/Levodopa 25-100 MG Tab PO PRN (20:17)
[2020-05-27] MEDS: Acetaminophen 325 MG Tab PO PRN (20:17)
--- NOTE | 2020-05-27 22:34 | PCM.PN ---
- General Info Date of Service: 05/27/20 Subjective Update: Khushboo is a 74 yo female who was admitted to the hospital yesterday from the clinic by Dr. Oleary for concerns of GI bleed. Patient admits since getting her Covid shot on the 12 of May she has felt awful. She was found to have an INR > 8 and was given Vitamin K yesterday 2.5mg. Initial Hgb was 8.7 yesterday. Patient did drop to 7.8 after about 6 hours. Proceeded with transfusion of 2 pRBC's. Patient states she had a horrible cough all night and feels when she coughs she can't breath. 05/26/2020 Khushboo does have known history of atrial fibrillation and has been admitted for GI bleed. States she continues to feel not well. Nursing staff did notice her he art rate increasing this morning around 0700. She has known history of atrial fibrillation and has been on Cardizem CD 360mg daily. Has been on Coumadin as well which has been held since known GI bleed and INR being quite elevated. She complains of chest pain with inspiration. Questions whether she has pleurisy. Otherwise admits to having regular bowel movement for her the last couple of days. 05/27/2020 Pt is feeling better today. Patient questions when she will be able to go home. Chest discomfort has improved. Did have chest x-ray yesterday which did show bilateral pleural effusions. Was given IV Lasix. States she has been ambulating and eating okay. Has old dentures and states she can't afford new ones so is only able to eat softer foods. Tessalon Perles were ordered d/t cough which has improved. - Review of Systems General: Denies: Fever HEENT: Reports: No Symptoms Pulmonary: Reports: Shortness of Breath, Cough Cardiovascular: Denies: No Symptoms Gastrointestinal: Reports: No Symptoms Genitourinary: Reports: No Symptoms Musculoskeletal: Reports: No Symptoms Skin: Reports: No Symptoms Neurological: Reports: No Symptoms - Patient Data Vitals - Most Recent: Last Vital Signs Temp 97.9 F 05/27/20 17:45 Pulse 99 05/27/20 19:57 Resp 18 05/27/20 16:00 BP 133/59 L 05/27/20 19:57 Pulse Ox 96 05/27/20 16:00 Weight - Most Recent: 83 lb 4.8 oz Lab Results Last 24 Hours: Laboratory Results - last 24 hr 05/27/20 05/27/20 Range/Units 08:00 08:00 WBC 6.8 (5.0-10.0) 10^3/uL RBC 3.84 L (4.00-5.50) 10^6/uL Hgb 10.7 L (12.0-16.0) g/dL Hct 33.8 L (37.0-47.0) % MCV 88.0 (82.0-94.0) fL MCH 27.9 (27.0-32.0) pg MCHC 31.7 L (33.0-38.0) g/dL RDW Coeff of Naomi 14.8 (11.0-15.0) % Plt Count 284 (150-400) 10^3/uL Neut % (Auto) 77.7 (35-85) % Lymph % (Auto) 11.0 (10-55) % [place] % (Auto) 8.0 (0-16) % Eos % (Auto) 3.2 (0-5) % Baso % (Auto) 0.1 (0-3) % Neut # (Auto) 5.31 (1.80-7.00) 10^3/uL Lymph # (Auto) 0.75 L (1.00-4.80) 10^3/uL [place] # (Auto) 0.55 (0.00-0.80) 10^3/uL Eos # (Auto) 0.22 (0.00-0.45) 10^3/uL Baso # (Auto) 0.01 10^3/uL Sodium 141 (136-145) mEq/L Potassium 3.4 L (3.5-5.0) mEq/L Chloride 104 (98-106) mEq/L Carbon Dioxide 32 (21-32) mmol/L BUN 11 (7-18) mg/dL Creatinine 0.6 (0.6-1.0) mg/dL Est Cr Clr Drug Dosing 48.32 mL/min Estimated GFR (MDRD) > 60 (>=60) mL/min Glucose 88 (75-99) mg/dL Calcium 9.0 (8.4-10.1) mg/dL Magnesium 1.5 L (1.8-2.4) mg/dL NT-Pro-B Natriuret Pep 1487 H (0-1000) pg/mL Med Orders - Current: Current Medications Acetaminophen (Tylenol) 650 mg PO Q4H PRN PRN Reason: Pain (Mild 1-3)/fever Last Admin: 05/27/20 20:17 Dose: 650 mg Documented by: Albuterol (Proventil Neb Soln) 2.5 mg NEB BID [facility] Last Admin: 05/27/20 19:49 Dose: 2.5 mg Documented by: Albuterol (Proventil Neb Soln) 2.5 mg NEB Q6H PRN PRN Reason: Dyspnea Last Admin: 05/27/20 13:17 Dose: 2.5 mg Documented by: Alprazolam (Xanax) 0.25 mg PO Q8H PRN PRN Reason: Anxiety Last Admin: 05/27/20 12:45 Dose: 0.25 mg Documented by: Benzonatate (Tessalon Perles) 100 mg PO TID PRN PRN Reason: Cough Last Admin: 05/27/20 01:08 Dose: 100 mg Documented by: Budesonide (Pulmicort) 0.25 mg NEB BID [facility] Last Admin: 05/27/20 19:59 Dose: 0.25 mg Documented by: Carbidopa/Levodopa (Sinemet 25-100 Mg) 1 - 2 tab PO BEDTIME PRN PRN Reason: restless legs Last Admin: 05/27/20 20:17 Dose: 2 tab Documented by: Carvedilol (Coreg) 3.125 mg PO BIDMEALS [facility] Last Admin: 05/27/20 19:57 Dose: 3.125 mg Documented by: Diltiazem HCl (Cardizem Cd) 360 mg PO DAILY [facility] Last Admin: 05/27/20 07:49 Dose: 360 mg Documented by: Fluticasone Propionate (Flonase) 0 gm NASBOTH BID [facility] Last Admin: 05/27/20 20:09 Dose: 1 spray Documented by: Magnesium Chloride (Mag-64) 128 mg PO BIDMEALS [facility] Last Admin: 05/27/20 17:12 Dose: 128 mg Documented by: Melatonin (Melatonin) 6 mg PO BEDTIME PRN PRN Reason: Sleep Last Admin: 05/26/20 21:06 Dose: 6 mg Documented by: Arformoterol [ Brovana] 15 Mcg/2ml Ptom 0 mcg INH BID [facility] Last Admin: 05/27/20 20:09 Dose: 15 mcg Documented by: Pantoprazole Sodium (Protonix Iv) 40 mg IVPUSH Q12H [facility] Last Admin: 05/27/20 17:12 Dose: 40 mg Documented by: Potassium Chloride (Klor-Con 10) 20 meq PO BIDMEALS [facility] Last Admin: 05/27/20 17:11 Dose: 20 meq Documented by: Sodium Chloride (Saline Flush) 10 ml FLUSH ASDIRECTED PRN PRN Reason: Keep Vein Open Sodium Chloride ([place] Nasal [place]) 0 ml BRIANNA QID PRN PRN Reason: Congestion Last Admin: 05/26/20 09:09 Dose: 1 spray Documented by: Temazepam (Restoril) 15 mg PO BEDTIME PRN PRN Reason: Insomnia Last Admin: 05/27/20 20:17 Dose: 15 mg Documented by: Discontinued Medications Albuterol (Proventil Neb Soln) 2.5 mg NEB Q6H PRN PRN Reason: Shortness of Breath Last Admin: 05/25/20 06:04 Dose: 2.5 mg Documented by: Budesonide (Pulmicort) 0.25 mg NEB BID PRN PRN Reason: Shortness of Breath Last Admin: 05/25/20 08:36 Dose: 0.25 mg Documented by: Furosemide (Lasix) 40 mg IVPUSH ONETIME ONE Stop: 05/26/20 08:55 Last Admin: 05/26/20 09:10 Dose: 40 mg Documented by: Potassium Chloride/Sodium Chloride (Normal Saline With 20 Meq Kcl) 1,000 mls @ 100 mls/hr IV ASDIRECTED [facility] Last Admin: 05/24/20 17:25 Dose: 100 mls/hr Documented by: Magnesium Sulfate/Dextrose 2 (gm/ Premix) 200 mls @ 100 mls/hr IV ONETIME ONE Stop: 05/24/20 17:47 Last Admin: 05/24/20 17:27 Dose: 100 mls/hr Documented by: Sodium Chloride (Normal Saline) 250 mls @ 50 mls/hr IV ASDIRECTED [facility] Stop: 05/24/20 21:00 Sodium Chloride (Normal Saline) 250 mls @ 50 mls/hr IV ASDIRECTED [facility] Magnesium Sulfate/Dextrose 2 (gm/ Premix) 200 mls @ 100 mls/hr IV ONETIME ONE Stop: 05/27/20 11:26 Last Admin: 05/27/20 10:33 Dose: 100 mls/hr Documented by: Magnesium Chloride (Mag-64) 64 mg PO BIDMEALS [facility] Last Admin: 05/27/20 07:49 Dose: 64 mg Documented by: Magnesium Sulfate (Magnesium Sulfate 50%) 1 gm IM ONETIME ONE Stop: 05/26/20 08:58 Last Admin: 05/26/20 09:13 Dose: 1 gm Documented by: Melatonin (Melatonin) 5 mg PO BEDTIME PRN PRN Reason: Sleep Phytonadione (Aquamephyton) 5 mg SUBCUT NOW ONE Stop: 05/24/20 15:48 Last Admin: 05/24/20 17:12 Dose: 5 mg Documented by: Phytonadione (Aquamephyton) 2.5 mg SUBCUT NOW ONE Stop: 05/25/20 08:31 Last Admin: 05/25/20 08:36 Dose: 2.5 mg Documented by: - Exam General: Alert, Oriented, Cooperative, No Acute Distress Lungs: Normal Respiratory Effort, Decreased Breath Sounds. No: Wheezing Cardiovascular: Irregular Rhythm, Tachycardia GI/Abdominal Exam: Normal Bowel Sounds, Soft, Non-Tender, No Distention Extremities: Normal Inspection, No Pedal Edema Peripheral Pulses: 2+: Dorsalis Pedis (L), Dorsalis Pedis (R) Skin: Warm, Dry, Intact Psy/Mental Status: Alert, Normal Affect, Normal Mood Sepsis Event Note - Evaluation Sepsis Screening Result: No Definite Risk - Focused Exam Vital Signs: Vital Signs Temp Pulse Pulse Resp BP BP Pulse Ox 05/27/20 19:57 99 133/59 L 05/27/20 17:45 97.9 F 05/27/20 16:00 99.9 F 88 18 115/54 L 96 05/27/20 12:00 98.2 F 118 H 18 142/59 H 94 L 05/27/20 11:16 118 H 142/59 H - Problem List & Annotations (1) GI bleed SNOMED Code(s): 56256771 Code(s): K92.2 - GASTROINTESTINAL HEMORRHAGE, UNSPECIFIED Status: Acute Current Visit: Yes Qualifiers: GI bleed type/associated pathology: melena Qualified Code(s): K92.1 - Melena (2) Elevated INR SNOMED Code(s): 763160059 Code(s): R79.1 - ABNORMAL COAGULATION PROFILE Status: Resolved Current Visit: Yes (3) Atrial fibrillation with RVR SNOMED Code(s): 082685321482749 Code(s): I48.91 - UNSPECIFIED ATRIAL FIBRILLATION Status: Chronic Priority: Medium Current Visit: No - Problem List Review Problem List Initiated/Reviewed/Updated: Yes - My Orders Last 24 Hours: My Active Orders 05/27/20 09:19 Echo Comp wo Cont [US] Routine 05/27/20 09:31 Temazepam [Restoril] 15 mg PO BEDTIME PRN 05/27/20 11:15 carvediloL [Coreg] 3.125 mg PO BIDMEALS 05/27/20 17:30 Magnesium Chloride [Mag-64] 128 mg PO BIDMEALS - Plan Plan:: Dr. Oleary did see Khushboo again this morning as well. Will give 2.5mg of Vitamin K again. INR is still high at 4. Hgb has improved to 10.5 today after receiving 2 units. BMP currently pending. Will order Tessalon Perles for cough. Repeat labs in am to include ProBnp. 05/26/2020 Khushboo's labs do show normal Hgb toda at 12.2. INR is currently 1.4. Patient does have known atrial fibrillation but started having a rapid ventricular response this morning up to 150's. Currently patient is asymptomatic. ProBNP is elevated. Will give 1 dose of IV Lasix. Patient's Cardizem CD 360mg was given roughly an hour ago. Will closely monitor. [place] Saline rinse ordered for nasal congestion. Chest x-ray pending. Will consult with Dr. Oleary in regards to GI bleed and whether anti-coagulation should be restarted. 05/27/2020 Hgb slightly declined today to 10.7, will continue to hold anticoagulation. Dr. Oleary discussed with Khushboo holding her Coumadin for a few weeks d/t recurrent GI bleeds. Will start Carvedilol 3.125mg BID. Echocardiogram ordered for today. Patient overall has shown significant improvement. Patient has been weaned off of supplemental oxygen and currently oxygen saturation is 94% on RA. Possibly plan for discharge tomorrow. Will confirm stability with Hgb. Magnesium continues to be chronically low and will give IV magnesium and increase Slo Mag.
[2020-05-28] MEDS: Pantoprazole 40 MG Vial IVPUSH SCH (04:23)
[2020-05-28 07:32] LABS: CHLORIDE,CL 105 mEq/L (98-106); SODIUM,NA 140 mEq/L (136-145)
[2020-05-28] MEDS ORDERED: Ferrous Sulfate 324 MG Tab.EC PO SCH (08:00)
[2020-05-28] MEDS: ARFORMOTEROL 15 MCG/2 ML INH SCH (08:33)
[2020-05-28] MEDS: Albuterol 0.083% 2.5 MG/3 ML Neb Soln NEB SCH (08:34)
[2020-05-28] MEDS: Diltiazem 180 MG Cap.CD PO SCH (08:36)
[2020-05-28] MEDS: Magnesium Chloride 64 MG Tab.ER PO SCH (08:36)
[2020-05-28] MEDS: Carvedilol 3.125 MG Tab PO SCH (08:37)
[2020-05-28] MEDS: Potassium Chloride 10 MEQ Tab.ER PO SCH (08:37)
[2020-05-28] MEDS: Budesonide 0.5 MG/2 ML Neb Susp NEB SCH (08:38)
[2020-05-28 08:39] VITALS: BP 135/74; PULSE 103
[2020-05-28] MEDS: Fluticasone Propionate Nasal Spray 16 GM Bottle NASBOTH SCH (08:39)
--- NOTE | 2020-05-28 14:02 | PCM.DCSUM1 ---
Discharge Summary - Hospital Course HPI Initial Comments: Khushboo is a 74 yo female who was admitted to the hospital yesterday from the clinic by Dr. Oleary for concerns of GI bleed. Patient admits since getting her Covid shot on the 12 of May she has felt awful. She was found to have an INR > 8 and was given Vitamin K yesterday 2.5mg. Initial Hgb was 8.7 yesterday. Patient did drop to 7.8 after about 6 hours. Proceeded with transfusion of 2 pRBC's. Patient states she had a horrible cough all night and feels when she coughs she can't breath. 05/26/2020 Khushboo does have known history of atrial fibrillation and has been admitted for GI bleed. States she continues to feel not well. Nursing staff did notice her heart rate increasing this morning around 0700. She has known history of atrial fibrillation and has been on Cardizem CD 360mg daily. Has been on Coumadin as well which has been held since known GI bleed and INR being quite elevated. She complains of chest pain with inspiration. Questions whether she has pleurisy. Otherwise admits to having regular bowel movement for her the last couple of days. 05/27/2020 Pt is feeling better today. Patient questions when she will be able to go home. Chest discomfort has improved. Did have chest x-ray yesterday which did show bilateral pleural effusions. Was given IV Lasix. States she has been ambulating and eating okay. Has old dentures and states she can't afford new ones so is only able to eat softer foods. Tessalon Perles were ordered d/t cough which has improved. - Discharge Data Discharge Date: 05/28/20 Discharge Disposition: Home, W Home Health Agency 06 Condition: Good - Referral to Home Health Date of Face to Face Encounter: 05/28/20 Reason for Homebound Status: Inability to drive dure to weakness, shortness of breath Primary Care Physician: Robe Oleary MD Skilled Need: Nursing to monitor lung status, blood pressure due to recent medication changes. - Discharge Diagnosis/Problem(s) (1) GI bleed SNOMED Code(s): 76456216 ICD Code: K92.2 - GASTROINTESTINAL HEMORRHAGE, UNSPECIFIED Status: Resolved Qualifiers: GI bleed type/associated pathology: melena Qualified Code(s): K92.1 - Melena (2) Elevated INR SNOMED Code(s): 284115143 ICD Code: R79.1 - ABNORMAL COAGULATION PROFILE Status: Resolved (3) Atrial fibrillation with RVR SNOMED Code(s): 247758712317618 ICD Code: I48.91 - UNSPECIFIED ATRIAL FIBRILLATION Status: Chronic Priority: Medium (4) Hypokalemia SNOMED Code(s): 17204873 ICD Code: E87.6 - HYPOKALEMIA Status: Chronic (5) Hypomagnesemia SNOMED Code(s): 729717178 ICD Code: E83.42 - HYPOMAGNESEMIA Status: Chronic - Patient Instructions Diet: Heart Healthy Diet Activity: As Tolerated - Discharge Plan *PRESCRIPTION DRUG MONITORING PROGRAM REVIEWED*: Not Applicable *COPY OF PRESCRIPTION DRUG MONITORING REPORT IN PATIENT JULY: Not Applicable Prescriptions/Med Rec: carvediloL [Coreg] 3.125 mg PO BIDMEALS #60 tablet Ferrous Sulfate 324 mg PO BIDMEALS #60 tab.ec Potassium Chloride [Klor-Con 10] 20 meq PO BIDMEALS #60 tab.er Magnesium Chloride [Mag-64] 128 mg PO BIDMEALS #1 bottle Home Medications: Home Meds Albuterol Sulfate 2.5 mg NEB Q6H PRN 10/14/15 [History] Arformoterol [Brovana] 15 mcg NEB BID 10/14/15 [History] Budesonide [Pulmicort] 0.25 mg NEB BID 10/14/15 [History] Carbidopa/Levodopa [Carbidopa-Levodopa 25-100 Tab] 1 - 2 tab PO BEDTIME PRN 10/14/15 [History] Pantoprazole [ProTONIX] 40 mg PO ACBREAKFAST #30 tab.cr 04/12/16 [Rx] dilTIAZem HCL [Diltiazem 24Hr ER ([place])] 360 mg PO DAILY 09/05/17 [History] ALPRAZolam [Alprazolam] 0.25 mg PO Q8H PRN 03/28/18 [History] Fluticasone Propionate [Flovent] 1 spray NASBOTH BID 03/28/18 [History] Acetaminophen [Tylenol Extra Strength] 2 each PO ASDIRECTED PRN 01/02/19 [History] Iron,Carb/Vit C/Vit B12/Folic [Iron 100 Plus Tablet] 1 each PO DAILY 01/02/19 [History] Vit A/C/E AC/Znox/Cupric Oxide [Eye Vitamin-Minerals Tablet] 2 each PO BID 01/02/19 [History] Albuterol Sulfate 2.5 mg INH BID 05/24/20 [History] Carbidopa/Levodopa [Carbidopa-Levodopa 25-100] 1 tab PO BEDTIME PRN 05/24/20 [History] Melatonin 5 mg PO BEDTIME PRN 05/24/20 [History] Triamcinolone Acetonide [Triamcinolone Acetonide 0.025%] 1 applic TOP BID 05/24/20 [History] Ferrous Sulfate 324 mg PO BIDMEALS #60 tab.ec 05/28/20 [Rx] Magnesium Chloride [Mag-64] 128 mg PO BIDMEALS #1 bottle 05/28/20 [Rx] Potassium Chloride [Klor-Con 10] 20 meq PO BIDMEALS #60 tab.er 05/28/20 [Rx] carvediloL [Coreg] 3.125 mg PO BIDMEALS #60 tablet 05/28/20 [Rx] Patient Handouts: Gastrointestinal Bleeding Referrals: Robe Oleary MD [Primary Care Provider] - (1 week) - Discharge Summary/Plan Comment DC Time >30 min.: Yes Discharge Summary/Plan Comment: Plan for discharge today. Patient has been doing well. Hgb is stable. See additional instructions for changes in medications. Home health to follow. - General Info Date of Service: 05/28/20 Functional Status: Reports: Pain Controlled, Tolerating Diet, Ambulating - Review of Systems General: Reports: No Symptoms HEENT: Reports: No Symptoms Pulmonary: Reports: No Symptoms Cardiovascular: Reports: No Symptoms Gastrointestinal: Reports: No Symptoms Genitourinary: Reports: No Symptoms Musculoskeletal: Reports: No Symptoms Skin: Reports: No Symptoms Neurological: Reports: No Symptoms Psychiatric: Reports: No Symptoms - Patient Data Vitals - Most Recent: Last Vital Signs Temp 98.1 F 05/28/20 08:00 Pulse 103 H 05/28/20 08:37 Resp 20 05/28/20 08:00 BP 135/74 05/28/20 08:37 Pulse Ox 96 05/28/20 08:00 Weight - Most Recent: 83 lb 4.8 oz Lab Results - Last 24 hrs: Laboratory Results - last 24 hr 05/28/20 05/28/20 Range/Units 05:11 05:11 WBC 9.5 (5.0-10.0) 10^3/uL RBC 4.03 (4.00-5.50) 10^6/uL Hgb 11.4 L (12.0-16.0) g/dL Hct 35.6 L (37.0-47.0) % MCV 88.3 (82.0-94.0) fL MCH 28.3 (27.0-32.0) pg MCHC 32.0 L (33.0-38.0) g/dL RDW Coeff of Naomi 14.6 (11.0-15.0) % Plt Count 299 (150-400) 10^3/uL Neut % (Auto) 81.2 (35-85) % Lymph % (Auto) 7.3 L (10-55) % [place] % (Auto) 7.8 (0-16) % Eos % (Auto) 3.4 (0-5) % Baso % (Auto) 0.3 (0-3) % Neut # (Auto) 7.67 H (1.80-7.00) 10^3/uL Lymph # (Auto) 0.69 L (1.00-4.80) 10^3/uL [place] # (Auto) 0.74 (0.00-0.80) 10^3/uL Eos # (Auto) 0.32 (0.00-0.45) 10^3/uL Baso # (Auto) 0.03 10^3/uL Sodium 140 (136-145) mEq/L Potassium 4.8 D (3.5-5.0) mEq/L Chloride 105 (98-106) mEq/L Carbon Dioxide 31 (21-32) mmol/L BUN 10 (7-18) mg/dL Creatinine 0.5 L (0.6-1.0) mg/dL Est Cr Clr Drug Dosing 57.99 mL/min Estimated GFR (MDRD) > 60 (>=60) mL/min Glucose 84 (75-99) mg/dL Calcium 9.3 (8.4-10.1) mg/dL Magnesium 1.7 L (1.8-2.4) mg/dL Med Orders - Current: Current Medications Discontinued Medications Acetaminophen (Tylenol) 650 mg PO Q4H PRN PRN Reason: Pain (Mild 1-3)/fever Last Admin: 05/27/20 20:17 Dose: 650 mg Documented by: Albuterol (Proventil Neb Soln) 2.5 mg NEB Q6H PRN PRN Reason: Shortness of Breath Last Admin: 05/25/20 06:04 Dose: 2.5 mg Documented by: Albuterol (Proventil Neb Soln) 2.5 mg NEB BID [facility] Last Admin: 05/28/20 08:34 Dose: 2.5 mg Documented by: Albuterol (Proventil Neb Soln) 2.5 mg NEB Q6H PRN PRN Reason: Dyspnea Last Admin: 05/27/20 13:17 Dose: 2.5 mg Documented by: Alprazolam (Xanax) 0.25 mg PO Q8H PRN PRN Reason: Anxiety Last Admin: 05/27/20 12:45 Dose: 0.25 mg Documented by: Benzonatate (Tessalon Perles) 100 mg PO TID PRN PRN Reason: Cough Last Admin: 05/27/20 01:08 Dose: 100 mg Documented by: Budesonide (Pulmicort) 0.25 mg NEB BID PRN PRN Reason: Shortness of Breath Last Admin: 05/25/20 08:36 Dose: 0.25 mg Documented by: Budesonide (Pulmicort) 0.25 mg NEB BID [facility] Last Admin: 05/28/20 08:38 Dose: 0.25 mg Documented by: Carbidopa/Levodopa (Sinemet 25-100 Mg) 1 - 2 tab PO BEDTIME PRN PRN Reason: restless legs Last Admin: 05/27/20 20:17 Dose: 2 tab Documented by: Carvedilol (Coreg) 3.125 mg PO BIDMEALS [facility] Last Admin: 05/28/20 08:37 Dose: 3.125 mg Documented by: Diltiazem HCl (Cardizem Cd) 360 mg PO DAILY [facility] Last Admin: 05/28/20 08:36 Dose: 360 mg Documented by: Ferrous Sulfate (Ferrous Sulfate) 324 mg PO BIDMEALS [facility] Last Admin: 05/28/20 08:37 Dose: 324 mg Documented by: Fluticasone Propionate (Flonase) 0 gm NASBOTH BID [facility] Last Admin: 05/28/20 08:39 Dose: 1 spray Documented by: Furosemide (Lasix) 40 mg IVPUSH ONETIME ONE Stop: 05/26/20 08:55 Last Admin: 05/26/20 09:10 Dose: 40 mg Documented by: Potassium Chloride/Sodium Chloride (Normal Saline With 20 Meq Kcl) 1,000 mls @ 100 mls/hr IV ASDIRECTED [facility] Last Admin: 05/24/20 17:25 Dose: 100 mls/hr Documented by: Magnesium Sulfate/Dextrose 2 (gm/ Premix) 200 mls @ 100 mls/hr IV ONETIME ONE Stop: 05/24/20 17:47 Last Admin: 05/24/20 17:27 Dose: 100 mls/hr Documented by: Sodium Chloride (Normal Saline) 250 mls @ 50 mls/hr IV ASDIRECTED [facility] Stop: 05/24/20 21:00 Sodium Chloride (Normal Saline) 250 mls @ 50 mls/hr IV ASDIRECTED [facility] Magnesium Sulfate/Dextrose 2 (gm/ Premix) 200 mls @ 100 mls/hr IV ONETIME ONE Stop: 05/27/20 11:26 Last Admin: 05/27/20 10:33 Dose: 100 mls/hr Documented by: Magnesium Chloride (Mag-64) 64 mg PO BIDMEALS [facility] Last Admin: 05/27/20 07:49 Dose: 64 mg Documented by: Magnesium Chloride (Mag-64) 128 mg PO BIDMEALS [facility] Last Admin: 05/28/20 08:36 Dose: 128 mg Documented by: Magnesium Sulfate (Magnesium Sulfate 50%) 1 gm IM ONETIME ONE Stop: 05/26/20 08:58 Last Admin: 05/26/20 09:13 Dose: 1 gm Documented by: Melatonin (Melatonin) 5 mg PO BEDTIME PRN PRN Reason: Sleep Melatonin (Melatonin) 6 mg PO BEDTIME PRN PRN Reason: Sleep Last Admin: 05/26/20 21:06 Dose: 6 mg Documented by: Arformoterol [ Brovana] 15 Mcg/2ml Ptom 0 mcg INH BID [facility] Last Admin: 05/28/20 08:33 Dose: 15 mcg Documented by: Pantoprazole Sodium (Protonix Iv) 40 mg IVPUSH Q12H [facility] Last Admin: 05/28/20 04:23 Dose: 40 mg Documented by: Phytonadione (Aquamephyton) 5 mg SUBCUT NOW ONE Stop: 05/24/20 15:48 Last Admin: 05/24/20 17:12 Dose: 5 mg Documented by: Phytonadione (Aquamephyton) 2.5 mg SUBCUT NOW ONE Stop: 05/25/20 08:31 Last Admin: 05/25/20 08:36 Dose: 2.5 mg Documented by: Potassium Chloride (Klor-Con 10) 20 meq PO BIDMEALS [facility] Last Admin: 05/28/20 08:37 Dose: 20 meq Documented by: Sodium Chloride (Saline Flush) 10 ml FLUSH ASDIRECTED PRN PRN Reason: Keep Vein Open Sodium Chloride ([place] Nasal [place]) 0 ml BRIANNA QID PRN PRN Reason: Congestion Last Admin: 05/26/20 09:09 Dose: 1 spray Documented by: Temazepam (Restoril) 15 mg PO BEDTIME PRN PRN Reason: Insomnia Last Admin: 05/27/20 20:17 Dose: 15 mg Documented by: - Exam General: Reports: Alert, Oriented, Cooperative, No Acute Distress Neck: Reports: Supple Lungs: Reports: Clear to Auscultation, Normal Respiratory Effort Cardiovascular: Reports: Regular Rate, Irregular Rhythm GI/Abdominal Exam: Normal Bowel Sounds, Soft, Non-Tender, No Distention Extremities: Normal Inspection, No Pedal Edema Skin: Reports: Warm, Dry, Intact Wound/Incisions: Reports: Healing Well Psy/Mental Status: Reports: Alert, Normal Affect, Normal Mood
== END 2020-05-28 11:55 | disposition home health service (06) | DRG 813 ==
LOC: CC.MS 13:09 → CC.FCMC 13:09 → UNDOADMIN 15:17 → CC.MS 15:17
PROVIDERS: ADMIT Family Medicine; ATTEND Family Medicine
PROC: 30233N1 Transfusion of Nonautologous Red Blood Cells into Peripheral Vein, Percutaneous Approach (ICD-10-PCS; principal; 2020-05-24)
DX: D68.32 Hemorrhagic disorder due to extrinsic circulating anticoagulants (principal); K92.2 Gastrointestinal hemorrhage, unspecified; D62 Acute posthemorrhagic anemia; E83.42 Hypomagnesemia; I48.91 Unspecified atrial fibrillation; R79.1 Abnormal coagulation profile; E87.6 Hypokalemia; J44.9 Chronic obstructive pulmonary disease, unspecified; G25.81 Restless legs syndrome; Z20.822 Contact with and (suspected) exposure to COVID-19; Z79.899 Other long term (current) drug therapy; Z88.0 Allergy status to penicillin; Z88.1 Allergy status to other antibiotic agents; T45.515A Adverse effect of anticoagulants, initial encounter; Z20.828 Contact with and (suspected) exposure to other viral communicable diseases
CPT/HCPCS: 36415; 36430; 71046; 80048; 82270; 83735; 83880; 85018; 85025; 85610; 86850; 86900; 86901; 86920; 86922; 93306; 94640; A9270-GY; C9113; J1940; J3430; J3475; J3480; J7613-GY; P9016; U0002

== ENCOUNTER → 2020-09-10 | Day surgery (SDC) | payer MEDICARE, BC ==
[~2020-09-10] MED LIST changes: -Midazolam 1 MG/ML 2 ML SDV IV ONE; -Propofol 200 MG/20 ML SDV IV ONE; +Propofol 200 MG/20 ML SDV ONE; -fentaNYL 100 MCG/2 ML SDV IV ONE
[2020-09-10 11:39] VITALS: BP 120/59; PULSE 82
--- NOTE | 2020-09-10 13:12 | OR ---
DATE OF OPERATION: 09/10/2020 PREOPERATIVE DIAGNOSIS: GASTROINTESTINAL BLEED. POSTOPERATIVE DIAGNOSIS: GASTROINTESTINAL BLEED. SURGEON: Robe Oleary MD PROCEDURE: DIAGNOSTIC ESOPHAGOGASTRODUODENOSCOPY. ANESTHESIA: MAC. COMPLICATIONS: None. SPECIMEN: None. FINDINGS: 1. Full-length diagnostic EGD. 2. Diffuse and mild antral gastritis with multiple small erosions, one with adherent clot. RECOMMENDATIONS: The patient will continue on proton pump therapy. Strongly encouraged to avoid anti-inflammatories, caffeine, nicotine, etc. She has been started on oral iron and we will continue to monitor her closely. She is on Plavix, so no biopsies were done, and we will plan on a 6-week followup scope with colonoscopy as well. INDICATIONS: The patient is status post a Watchman procedure for AFib. Postoperatively, her hemoglobin is down to 7. She is now off Coumadin, but remains on Plavix. We elected to proceed with an EGD. The last colonoscopy was about 5 years ago which was fine. DESCRIPTION OF PROCEDURE: The patient was prepped and draped, placed in the left lateral decubitus position. A lubricated Olympus gastroscope was inserted over a bit, advanced to cricopharyngeus area, and easily intubated into the esophagus. The esophageal lining was completely benign. The Z-line was crisp and sharp around 36 cm. She has a small hernia present, but no distal esophagitis, stricturing, ulceration, or Edmond's changes. The scope was advanced into the stomach, through the pylorus, and into the second portion of duodenum. This and the duodenal bulb were completely benign. The scope was brought back into the stomach and retroflexed. The upper fundus and cardia were unremarkable. In the distal portion of the fundus and in the proximal antrum, the patient had some diffuse gastritis changes, active and mild. There was 1 area of a small erosion that had adherent clot to it and we did not irritate that. Because she is on Plavix, we did not do biopsies of the antrum or do a CLOtest. Air was then suctioned and the scope was removed without complication. RAFAELA/NICHOLAS /[id number]
== END ==
LOC: CC.SDS 09:18
PROVIDERS: ATTEND Family Medicine
DX: K29.50 Unspecified chronic gastritis without bleeding (principal); K44.9 Diaphragmatic hernia without obstruction or gangrene; R53.1 Weakness; G25.81 Restless legs syndrome; I11.0 Hypertensive heart disease with heart failure; I50.9 Heart failure, unspecified; J44.9 Chronic obstructive pulmonary disease, unspecified; E78.5 Hyperlipidemia, unspecified; F17.210 Nicotine dependence, cigarettes, uncomplicated; I48.91 Unspecified atrial fibrillation; D50.9 Iron deficiency anemia, unspecified; M81.0 Age-related osteoporosis without current pathological fracture; Z79.01 Long term (current) use of anticoagulants; Z88.0 Allergy status to penicillin; Z88.1 Allergy status to other antibiotic agents; Z79.899 Other long term (current) drug therapy; Z95.818 Presence of other cardiac implants and grafts
CPT/HCPCS: 43235; J2704; J7120; 00731; 99100